=== PATIENT | female | born 1970 | race Caucasian/White ===

== ENCOUNTER → 2020-12-04 | Outpatient (CLI) | payer BC, SELFPAY ==
[2020-12-04 22:27] LABS: Absolute Neutrophil Count 3.4 X10^3/uL (2.0-7.7); Basophil# 0.03 X10^3/uL; Basophil% 0.4 % (0-1); Eosinophil# 0.08 X10^3/uL; Eosinophils% 1.2 % (0-5); Hematocrit 35.4 % (37-47); Hemoglobin 10.6 g/dL (12.0-15.0); Lymphocyte % 37.4 % (19-41); Mean Corp Hgb Conc 29.9 g/dL (32-36); Mean Corpuscular Hgb 21.5 pg (27.0-32.0); Mean Platelet Vol. 9.1 fl (6.2-12.0); Monocyte# 0.65 X10^3/uL; Monocyte% 9.7 % (0-10); NRBC Flagged by Analyzer 0 % (0-5); Neutrophil # 3.41 X10^3/uL (2.7-7.7); Platelet Count 340 K/mm3 (150-450); RBC Distribution Width CV 17.1 % (11.6-14.6); RBC Distribution Width SD 43.7 fl (35.1-43.9); Red Blood Count 4.92 M/mm3 (4.2-5.4); White Blood Count 6.7 K/mm3 (4.4-11.0)
[2020-12-04 22:49] LABS: AST(SGOT) 18 U/L (15-37); Alanine Aminotransfer ALT/SGPT 27 U/L (13-56); Albumin, Serum 3.6 g/dL (3.2-5.0); Alkaline Phosphatase 97 U/L (45-117); Anion Gap 8 (5-15); BUN 13 mg/dL (7-18); BUN/Creat Ratio 14.3 RATIO (10-20); Calcium,Total 8.4 mg/dL (8.5-10.1); Chloride 106 mmol/L (98-107); Creatinine, Serum 0.91 mg/dL (0.55-1.02); EST Glomerular Filtration Rate 69 mL/min (>60); Est Glom Filt Rate - Afr Amer 84 mL/min (>60); Globulin 3.6 g/dL (2.2-4.2); Glucose 119 mg/dL (74-106); Magnesium 2.2 mg/dL (1.6-2.6); Potassium 3.9 mmol/L (3.5-5.1); Protein, Total 7.2 g/dL (6.4-8.2); Sodium Level 141 mmol/L (136-145); Thyroid Stim Hormone (TSH) 2.09 uIU/mL (0.358-3.74)
[2020-12-09 17:14] LABS: Vitamin D 1,25-Dihydroxy 67.3 pg/mL (19.9-79.3)
== END | disposition home or self-care (01) ==
PROVIDERS: Visit Provider Nurse Practitioner
DX: R25.2 Cramp and spasm (principal); E55.9 Vitamin D deficiency, unspecified; R53.83 Other fatigue
CPT/HCPCS: 80053; 82652; 83735; 84443; 85025

== ENCOUNTER → 2021-01-21 | Outpatient (CLI) | payer BC, SELFPAY ==
[2021-01-21 22:10] LABS: Absolute Neutrophil Count 4.8 X10^3/uL (2.0-7.7); Basophil# 0.05 X10^3/uL; Basophil% 0.6 % (0-1); Eosinophil# 0.12 X10^3/uL; Eosinophils% 1.5 % (0-5); Hematocrit 34.3 % (37-47); Lymphocyte % 30.4 % (19-41); Mean Corp Hgb Conc 29.2 g/dL (32-36); Mean Corpuscular Hgb 21.4 pg (27.0-32.0); Mean Corpuscular Volume 73.3 fL (81-99); Mean Platelet Vol. 9.3 fl (6.2-12.0); Monocyte# 0.77 X10^3/uL; Monocyte% 9.4 % (0-10); NRBC Flagged by Analyzer 0 % (0-5); Neutrophil # 4.75 X10^3/uL (2.7-7.7); Neutrophil % 57.6 % (47-70); Platelet Count 322 K/mm3 (150-450); RBC Distribution Width CV 17.7 % (11.6-14.6); Red Blood Count 4.68 M/mm3 (4.2-5.4); White Blood Count 8.2 K/mm3 (4.4-11.0)
[2021-01-21 22:19] LABS: Iron Binding Capacity,Total 412 ug/dL (250-450)
[2021-01-23 13:50] LABS: Transferrin 337 mg/dL (192-364)
== END | disposition home or self-care (01) ==
PROVIDERS: Referring Provider Nurse Practitioner; Visit Provider Nurse Practitioner
DX: D50.9 Iron deficiency anemia, unspecified (principal)
CPT/HCPCS: 83550; 84466; 85025

== ENCOUNTER → 2021-02-12 | Outpatient (CLI) | payer BC, SELFPAY ==
[2021-02-12 22:22] LABS: Vitamin B12 590 pg/mL (211-911)
[2021-02-12 22:58] LABS: Ferritin 4 ng/mL (8-252); Iron 21 ug/dL (50-170); Iron Binding Capacity,Total 417 ug/dL (250-450)
== END | disposition home or self-care (01) ==
PROVIDERS: Visit Provider Nurse Practitioner
DX: D50.9 Iron deficiency anemia, unspecified (principal)
CPT/HCPCS: 82607; 82728; 82746; 83540; 83550

== ENCOUNTER 2021-06-19 21:11 | Outpatient (CLI) | payer BC, SELFPAY ==
[2021-06-19 21:19] LABS: Absolute Lymphocyte Count 1.83 X10^3/uL (0.83-4.51); Absolute Neutrophil Count 2.3 X10^3/uL (2.0-7.7); Basophil# 0.04 X10^3/uL; Basophil% 0.8 % (0-1); Eosinophil# 0.08 X10^3/uL; Eosinophils% 1.7 % (0-5); Hematocrit 33.5 % (37-47); Hemoglobin 10.4 g/dL (12.0-15.0); Lymphocyte # 1.83 X10^3/ul (0.83-4.51); Mean Corpuscular Hgb 22.3 pg (27.0-32.0); Mean Corpuscular Volume 71.7 fL (81-99); Mean Platelet Vol. 9.3 fl (6.2-12.0); Monocyte% 12.4 % (0-10); NRBC Flagged by Analyzer 0 % (0-5); Neutrophil # 2.26 X10^3/uL (2.7-7.7); Neutrophil % 46.9 % (47-70); Platelet Count 256 K/mm3 (150-450); RBC Distribution Width CV 18.6 % (11.6-14.6); Red Blood Count 4.67 M/mm3 (4.2-5.4); White Blood Count 4.8 K/mm3 (4.4-11.0)
[2021-06-19 21:47] LABS: AST(SGOT) 64 U/L (15-37); Alanine Aminotransfer ALT/SGPT 58 U/L (13-56); Albumin, Serum 3.2 g/dL (3.2-5.0); Alkaline Phosphatase 100 U/L (45-117); Anion Gap 4 (5-15); BUN 12 mg/dL (7-18); BUN/Creat Ratio 11.1 RATIO (10-20); Calcium,Total 8.5 mg/dL (8.5-10.1); Chloride 111 mmol/L (98-107); Creatinine, Serum 1.08 mg/dL (0.55-1.02); EST Glomerular Filtration Rate 56 mL/min (>60); Est Glom Filt Rate - Afr Amer 68 mL/min (>60); Ferritin 7 ng/mL (8-252); Globulin 3.3 g/dL (2.2-4.2); Glucose 87 mg/dL (74-106); Iron Binding Capacity,Total 399 ug/dL (250-450); Potassium 3.5 mmol/L (3.5-5.1); Protein, Total 6.5 g/dL (6.4-8.2); Sodium Level 142 mmol/L (136-145)
[2021-06-23 12:17] LABS: Transferrin 311 mg/dL (192-364)
== END 2021-06-19 23:59 | disposition home or self-care (01) ==
PROVIDERS: Referring Provider Nurse Practitioner; Visit Provider Nurse Practitioner
DX: D50.9 Iron deficiency anemia, unspecified (principal)
CPT/HCPCS: 80053; 82728; 83550; 84466; 85025

== ENCOUNTER → 2021-12-17 | Outpatient (CLI) | payer BC, SELFPAY ==
[2021-12-17 21:58] LABS: Absolute Lymphocyte Count 2.91 X10^3/uL (0.83-4.51); Absolute Neutrophil Count 2.7 X10^3/uL (2.0-7.7); Basophil# 0.04 X10^3/uL; Basophil% 0.6 % (0-1); Eosinophil# 0.11 X10^3/uL; Eosinophils% 1.8 % (0-5); Hematocrit 38.7 % (37-47); Hemoglobin 12.7 g/dL (12.0-15.0); Lymphocyte # 2.91 X10^3/ul (0.83-4.51); Lymphocyte % 46.4 % (19-41); Mean Corp Hgb Conc 32.8 g/dL (32-36); Mean Corpuscular Hgb 27.4 pg (27.0-32.0); Mean Corpuscular Volume 83.4 fL (81-99); NRBC Flagged by Analyzer 0 % (0-5); Platelet Count 225 K/mm3 (150-450); RBC Distribution Width CV 14.4 % (11.6-14.6); RBC Distribution Width SD 43.8 fl (35.1-43.9); Red Blood Count 4.64 M/mm3 (4.2-5.4); White Blood Count 6.3 K/mm3 (4.4-11.0)
[2021-12-17 22:31] LABS: ALB/GLOB Ratio 1.2 RATIO (0.9-2.4); AST(SGOT) 19 U/L (15-37); Alanine Aminotransfer ALT/SGPT 20 U/L (13-56); Albumin, Serum 3.7 g/dL (3.2-5.0); Alkaline Phosphatase 74 U/L (45-117); Anion Gap 5 (5-15); BUN 12 mg/dL (7-18); BUN/Creat Ratio 14.8 RATIO (10-20); Calcium,Total 8.6 mg/dL (8.5-10.1); Chloride 108 mmol/L (98-107); Creatinine, Serum 0.81 mg/dL (0.55-1.02); EST Glomerular Filtration Rate 78 mL/min (>60); Est Glom Filt Rate - Afr Amer 95 mL/min (>60); Globulin 3.2 g/dL (2.2-4.2); Glucose 101 mg/dL (74-106); Potassium 3.8 mmol/L (3.5-5.1); Protein, Total 6.9 g/dL (6.4-8.2); Sodium Level 138 mmol/L (136-145)
[2021-12-21 14:23] LABS: Transferrin 183 mg/dL (192-364)
== END | disposition home or self-care (01) ==
PROVIDERS: Visit Provider Nurse Practitioner
DX: D50.0 Iron deficiency anemia secondary to blood loss (chronic) (principal)
CPT/HCPCS: 80053; 84466; 85025

== ENCOUNTER → 2023-11-22 | Outpatient (CLI) | payer BC, SELFPAY ==
[2023-11-22 22:17] LABS: Absolute Lymphocyte Count 2.56 X10^3/uL (0.83-4.51); Absolute Neutrophil Count 2.3 X10^3/uL (2.0-7.7); Basophil# 0.03 X10^3/uL; Basophil% 0.5 % (0-1); Eosinophil# 0.18 X10^3/uL; Eosinophils% 3.3 % (0-5); Hematocrit 34.5 % (37-47); Hemoglobin 11.4 g/dL (12.0-15.0); Lymphocyte # 2.56 X10^3/ul (0.83-4.51); Lymphocyte % 46.9 % (19-41); Mean Corpuscular Hgb 27.3 pg (27.0-32.0); Mean Corpuscular Volume 82.5 fL (81-99); Mean Platelet Vol. 9.2 fl (6.2-12.0); Monocyte# 0.42 X10^3/uL; Monocyte% 7.7 % (0-10); NRBC Flagged by Analyzer 0 % (0-5); Neutrophil # 2.26 X10^3/uL (2.7-7.7); Neutrophil % 41.4 % (47-70); Platelet Count 230 K/mm3 (150-450); RBC Distribution Width SD 42.3 fl (35.1-43.9); Red Blood Count 4.18 M/mm3 (4.2-5.4); White Blood Count 5.5 K/mm3 (4.4-11.0)
[2023-11-22 22:42] LABS: Magnesium 2.3 mg/dL (1.6-2.6); Thyroid Stim Hormone (TSH) 4.01 uIU/mL (0.358-3.74)
[2023-11-23 08:46] LABS: Vitamin B12 626 pg/mL (211-911)
[2023-11-25 13:08] LABS: Vitamin D 1,25-Dihydroxy 60.3 pg/mL (24.8-81.5)
== END | disposition home or self-care (01) ==
PROVIDERS: Referring Provider Nurse Practitioner; Visit Provider Nurse Practitioner
DX: R25.2 Cramp and spasm (principal); I83.90 Asymptomatic varicose veins of unspecified lower extremity; E55.9 Vitamin D deficiency, unspecified; D50.9 Iron deficiency anemia, unspecified; E03.9 Hypothyroidism, unspecified
CPT/HCPCS: 82607; 82652; 83735; 84443; 85025

== ENCOUNTER → 2023-11-30 | Outpatient (CLI) | payer BC, SELFPAY ==
--- NOTE | 2023-11-30 13:57 | ART_ITS ---
Reason For Study: Claudication Procedure A bilateral lower extremity continuous wave Doppler with analog waveform analysis,segmental pressures,and ankle brachial indexes without exercise. Left Segmental Pressures Left brachial= 106mmHg. Left posterior tibial artery = 140mmHg. Left dorsalis pedis artery = 129mmHg. The left dorsalis pedis waveforms are triphasic. The left posterior tibial artery waveforms are triphasic. Right Segmental Pressures Right brachial= 110mmHg. Right posterior tibial artery = 144mmHg. Right dorsalis pedis artery = 131mmHg. The right dorsalis pedis waveforms are triphasic. The right posterior tibial artery waveforms are triphasic. Indices The right ankle brachial index by the dorsalis pedis is 1.19. The right ankle brachial index by the posterior tibial artery is 1.31. The left ankle brachial index by the dorsalis pedis is 1.17. The left ankle brachial index by the posterior tibial artery is 1.27. VL/Lower Ext Art Exam w/o Exercis Interpretation Summary Triphasic Doppler waveforms are noted at ankle level bilaterally. Pulse-volume recordings appear diminished at digital level on the right, but satisfactory at all other levels bilaterally. Resting ankle-brachial indices are normal bilaterally. Arterial flow appears normal at ankle level bilaterally. Arterial flow appears normal at digital level on the left. Arterial flow may be diminished at digital level on the righ t, but was not fully evaluated. Ordering Physician: Isaac Mina Referring Physician: ISAAC MINA INPATIENT CODER-C Performed By: Gena Sanchez RVT
--- NOTE | 2023-11-30 13:57 | VDLE_ITS ---
Reason For Study: Bilateral leg swelling RIGHT LEFT CFV is compressible, spontaneous, phasic, CFV is compressible, spontaneous, phasic, competent and demonstrates normal competent, and demonstrates normal augmentation. augmentation. FV is compressible, spontaneous, phasic, FV is compressible, spontaneous, phasic, competent and demonstrates normal competent and demonstrates normal augmentation. augmentation. POP V is compressible, spontaneous, phasic, POP V is compressible, spontaneous, phasic, competent and demonstrates normal competent and demonstrates normal augmentation. augmentation. T/P Trunk is compressible. T/P Trunk is compressible. PTV is compressible. PTV is compressible. RT PerV is compressible. LT PerV is compressible. SFJ is INCOMPETENT and measures 0.64 cm. SFJ is INCOMPETENT and measures 0.77 cm. GSV proximal thigh measures 0.33 x 0.32 cm. GSV proximal thigh measures 0.38 x 0.41 cm. GSV at knee measures 0.29 x 0.31 cm. GSV at knee measures 0.22 x 0.24 cm. GSV is competent throughout. GSV is competent throughout. SSV proximal calf is competent and measures SSV proximal calf is competent and measures 0.13 x 0.14 cm. 0.26 x 0.25 cm. Procedure This is a venous duplex using B-mode, color flow and spectral Doppler. Exam performed in department. Patient was scanned in reverse Trendelenburg position during reflux assessment. VL/Venous Duplex US - Rui Extrem Interpretation Summary Deep veins of the lower extremities are bilaterally patent and compressible seg mentally. There is no evidence of deep vein thrombosis on either side. Valvular competence appears in tact within the proximal deep venous systems bilaterally. The great saphenous veins appear bila terally patent and compressible segmentally. Sapheno-femoral junctions are bilaterally incompetent . Valvular competence appears to be intact segmentally within the great saphenous veins bi laterally. Small saphenous veins are patent and competent bilaterally. Ordering Physician: Deann Olson Referring Physician: Deann Olson Performed By: Gena Sanchez RVT
== END | disposition home or self-care (01) ==
LOC: CVS 13:53
PROVIDERS: PCP Nurse Practitioner; Referring Provider Nurse Practitioner; Visit Provider Nurse Practitioner
DX: R60.9 Edema, unspecified (principal); I83.813 Varicose veins of bilateral lower extremities with pain; R25.2 Cramp and spasm; I73.9 Peripheral vascular disease, unspecified
CPT/HCPCS: 93923; 93970

== ENCOUNTER → 2024-02-11 | Outpatient (CLI) | payer BC, SELFPAY ==
--- NOTE | 2024-02-11 15:30 | RAD_ITS ---
STUDY: X-RAY - LUMBAR SPINE REASON FOR EXAM: Female, 53 years old. lower extremity tingling/cramps/pain TECHNIQUE: XR Spine Lumbar 2 or 3 Views COMPARISON: None FINDINGS: Normal lumbar lordosis. There is no substantial scoliosis. There is a normal alignment of the vertebrae. There is multilevel endplate spondylosis of the lumbar vertebrae. There is multi-level degenerative disc disease with multi-level disc space narrowing. There are atherosclerotic vascular calcifications. The left hip arthroplasty. Degenerative findings of the right hip. The soft tissue structures are unremarkable. RAD/Lumbar Spine 2 or 3 Views IMPRESSION: Degenerative changes of the spine, as detailed above. Electronically Signed: Mikel Yanez MD at 19:46 EDT ,
[2024-02-11 16:05] LABS: Absolute Lymphocyte Count 2.24 X10^3/uL (0.83-4.51); Absolute Neutrophil Count 2.1 X10^3/uL (2.0-7.7); Basophil# 0.04 X10^3/uL; Basophil% 0.8 % (0-1); Eosinophil# 0.17 X10^3/uL; Eosinophils% 3.4 % (0-5); Hematocrit 34.8 % (37-47); Hemoglobin 11.1 g/dL (12.0-15.0); Lymphocyte # 2.24 X10^3/ul (0.83-4.51); Lymphocyte % 45.1 % (19-41); Mean Corp Hgb Conc 31.9 g/dL (32-36); Mean Corpuscular Hgb 26.7 pg (27.0-32.0); Mean Corpuscular Volume 83.9 fL (81-99); Mean Platelet Vol. 8.8 fl (6.2-12.0); Monocyte# 0.43 X10^3/uL; Monocyte% 8.7 % (0-10); NRBC Flagged by Analyzer 0 % (0-5); Neutrophil # 2.08 X10^3/uL (2.7-7.7); Neutrophil % 41.8 % (47-70); Platelet Count 191 K/mm3 (150-450); RBC Distribution Width CV 14.2 % (11.6-14.6); RBC Distribution Width SD 43.5 fl (35.1-43.9); Red Blood Count 4.15 M/mm3 (4.2-5.4)
[2024-02-11 16:47] LABS: Vitamin B12 541 pg/mL (211-911)
--- OUTSIDE RECORDS SUMMARY | 2024-02-11 17:15 | XMS RPT_ITS | CCD ---
Author Organization [facility] Care Team Providers Care Interior Painter Name Role Phone Wendy Anderson Primary Care Provider Unavailab ISAAC Paz Primary Care Unavailable ASTER COURTNEY Attending Unavailable ASTER COURTNEY Admitting Unavailable Isaac Mina Primary Care Provider ISAAC MINA Referring Unavailable ISAAC MINA Primary Care Unavailable ANDRÉS ROJAS Attending Unavailable Wesley ART DISPLAY MAKER.Isaac LOPEZ Primary Care Provide r SELF Referring Unavailable ISAAC MINA Primary Care Unavailable Allergies Allergy Classification Reported Allergen(s) Allergy Type Date of Onset Reaction(s) Facility Opioid Agonists (1 source) Codeine Drug Allergy 02-26-2015 Other (See Comments) [facility] (2 sources) Codeine Drug Allergy 02-26-2015 Other (See Comments), Unknown, Intolerance, Other: See Comments [facility] Work Phone: Medications Current Medications Medication Drug Class(es) Dates Sig (Normalized) Sig (Original) acetaminophen 500 mg oral tablet (6 sources) Start: 07-21-2020 take 1 dose by mouth three times daily 1,000 mg, Oral, EVERY 8 HOURS SCHEDULED (3 times per day), First dose on 07/21/20 at 1400 Maximum dose of acetaminophen is 4000 mg from all sources in 24 hours. Post-op acetaminophen (T YLENOL EXTRA STRENGTH ORAL) Take 500 mg by mouth as needed (PRN). 0 Active acetaminophen 325 mg / oxyCODONE hydrochloride 5 mg oral tablet (1 source) Opioid Agonist Start: 07-21-2020 End: 07-26-2020 take 1 tablet by mouth every six hours as needed for pain, then take 1 tablet by mouth as needed for pain oxyCODONE-acetaminophen (PERCOCET) 5-325 MG per tablet Indications: Internal hernia Take 1 tablet by mouth every 6 hours as needed for Pain for up to 5 days. Intended supply: 5 days. Take lowest dose possible to manage pain 20 tablet 0 07/21/2020 07/26/2020 Active albuterol 0.83 mg/ml inhalant solution (1 source) beta2-Adrene rgic Agonist Start: 07-21-2020 2.5 mg, Nebulization, EVERY 4 HOURS WHILE AWAKE, First dose on 07/21/20 at 1600, Post-op ascorbic acid 500 mg chewable tablet (1 source) Vitamin C take 500 mg by mouth once daily Ascorbic Acid (VITAMIN C) 500 MG CHEW Take by mouth daily Supplement 0 Active bifidobacterium animalis [id number] unt / lactobacillus acidophilus [id number] unt oral capsule (3 sources) take 1 capsule by mouth once daily Probiotic Product (Probiotic Daily) capsule Take 1 capsule by mouth daily. 0 Active cholecalciferol 0.025 mg oral tablet (3 sources) Vitamin D take 1 tablet by mouth in the morning cholecalciferol (Vitamin D3) 25 MCG (1000 UT) tablet Take 1,000 Units by mouth in the morning. 0 Active take 2 tablets by mouth once naheed ly Vitamin D (CHOLECALCIFEROL) 25 MCG (1000 UT) TABS tablet Take 1,000 Units by mouth daily 2 tablets a day Supplement 0 Active cyclobenzaprine hydrochloride 10 mg oral tablet (1 source) Muscle Relaxant Start: 11-20-2023 take 0.5-1 tablets by mouth at bedtime as needed cyclobenzaprine (FLEXERIL) 10 mg tablet Indications: Muscle cramps Take 0.5-1 tablets by mouth at bedtime as needed. 14 tablet 0 11/20/2023 Active Digestive Enzymes (whoactually PREBIOTIC SUPPLEMENT PO) (2 sources) Digestive Enzyme s (whoactually PREBIOTIC SUPPLEMENT PO) Take by mouth daily. 0 Active 0.4 ml enoxaparin sodium 100 mg/ml prefilled syringe (1 source) Low Molecular Weight Heparin Start: 07-21-2020 inject 40 mg by subcutaneous injection every twelve hours 40 mg, Subcutaneous, DAILY, First dose on 07/21/20 at 2200 40mg every 12 hours, subcutaneous, if 300 - 400 lbs. Post-op ergocalciferol, vitamin D2, (VITAMIN D2 ORAL) (1 source) ergocalciferol, vitamin D2, (VITAMIN D2 ORAL) Take by mouth. 0 Active HYDROmorphone (DILAUDID) injection 0.25 mg (1 source) Start: 07-21-2020 HYDROmorphone (DILAUDID) injection 0.25 mg iron,carb/vit C/vit B12/folic (IRON 100 PLUS ORAL) (1 source) iron,carb/vit C/ vit B12/folic (IRON 100 PLUS ORAL) Take by mouth. 0 Active Lutein (2 sources) take 1 tablet by mouth in the morning LUTEIN PO Take 1 tablet by mouth in the morning. 0 Active Magnesium (3 sources) Magnesium 200 mg tab Take by mouth. 0 Active MAGNESIUM PO Jose e by mouth daily. 0 Active meclizine hydrochloride 12.5 mg oral tablet (2 sources) Antiemetic Start: 06-04-2022 take 1 tablet by mouth three times daily as needed meclizine (Antivert) 12.5 MG tablet Take 12.5 mg by mouth 3 times daily as needed. 0 06/04/2022 Active Multivitamins-Minerals -Lutein (MULTIVITAMIN 50 PLUS) tab (1 source) Multivitamins-Mi nera ls-Lutein (MULTIVITAMIN 50 PLUS) tab Take 1 tablet by mouth once daily. Plexus vitamins 0 Active NONFORMULARY (6 sources) NONFORMULARY 1 tablet daily PLEXUS [employer] contains Magnesium 0 Active NONFORMULARY PLE XUS Multi vitamin X Factor 0 Active NONFORMULARY PLE XUS OMEGA 3-5-6-7 0 Active NONFORMULARY PLE XUS Balance 0 Active NONFORMULARY PLE XUS Immune PLUS 0 Active NONFORMULARY Sli m liquid gut health 0 Active omega-3 acid ethyl esters (penitentiary) 1000 mg oral capsule (2 sources) omega-3 acid eth yl esters (Lovaza) 1 g capsule Take 1 g by mouth 2 times daily. 0 Active ondansetron 8 mg oral tablet (7 sources) Serotonin-3 Receptor Antagonist Start: 3 take 1 tablet by mouth every twelve hours as needed ondansetron (Zofran) 8 MG tablet Take 8 mg by mouth every 12 hours as needed. 0 06/04/2022 Active Start: 07-21-2020 take 1 tablet by kait th three times daily as needed for nausea ondansetron (ZOFRAN) 4 MG tablet Take 1 tablet by mouth 3 times daily as needed for Nausea or Vomiting 15 tablet 0 07/21/2020 Active Start: 07-21-2020 End: 07-21-2020 4 mg, Intravenous, EVERY 6 H OURS PRN, Nausea, Starting 07/21/20 at 1236, Post-op Start: 07-21-2020 End: 07-21-2020 ondansetron (ZOFRAN-ODT) disintegrating tablet 4 mg oxyCODONE (1 source) Opioid Agonist Start: 07-21-2020 oxyCODONE (ROXICODONE) immediate release tablet 5 mg pantoprazole 40 mg delayed release oral tablet (1 source) Proton Pump Inhibitor Start: 07-21-2020 take 40 mg by mouth once daily 40 mg, Oral, DAILY, First dose on 07/21/20 at 1300 Do not crush or break. Post-op 3 ml sodium chloride 9 mg/ml injection (2 sources) Start: 07-21-2020 10 mL, Intrave nous, EVERY 12 HOURS SCHEDULED (2 times per day), First dose on 07/21/20 at 2100, Post-op Start: 07-21-2020 take 10 mL intravenous route o nce 10 mL, Intravenous, PRN, Line Care, Starting 07/21/20 at 1236 After every IV line use Post-op Zinc (1 source) take 1 tablet by kait th once daily zinc 50 MG TABS tablet Take 50 mg by mouth daily zupplement 0 Active zinc gluconate 50 mg oral tablet (2 sources) take 1 tablet by kait th once daily zinc 50 MG tablet Take 50 mg by mouth daily. 0 Active Completed/Discontinued Medications Medication Drug Class(es) Dates Sig (Normalized) Sig (Original) calcium chloride 0.0014 meq/ml / potassium chloride 0.004 meq/ml / sodium chloride 0.103 meq/ml / sodium lactate 0.028 meq/ml injectable solution (1 source) Start: 07-21-2020 End: 07-21-2020 lactated ringers infusion 500 ml glucose 50 mg/ml / potassium chloride 0.02 meq/ml / sodium chloride 4.5 mg/ml injection (1 source) Start: 07-21-2020 End: 07-22-2020 Intravenous, at 100 mL/hr, CONTINUOUS, Starting 07/21/20 at 1300, Post-op 1 ml HYDROmorphone hydrochloride 1 mg/ml cartridge (2 sources) Opioid Agonist Start: 07-21-2020 End: 07-21-2020 HYDROmorphone (DILAUDID) injection 0.25 mg Start: 07-21-2020 End: 07-21-2020 HYDROmorphone (DILAUDID) inj ection 1 mg Probiotic Product (PROBIOTIC DAILY) CAPS (1 source) take 1 capsule by mouth once daily Probiotic Product (PROBIOTIC DAILY) CAPS Take 1 capsule by mouth daily 0 Suspended 1 ml promethazine hydrochloride 25 mg/ml injection (1 source) Phenothiazine Start: 07-21-2020 End: 07-21-2020 promethazine (PHENERGAN) injection 6.25 mg Problems Active Problems Problem Classification Problem Date Documented Da te Episodic/Chronic Abdominal pain (2 sources) Generalized abdominal pain; Translations: [Epigastric pain] Onset: 3 Episodic Complications of surgical procedures or medical care (14 sources) Post-surgical malabsorption; Translations: [Postsurgical malabsorption, not elsewhere classified] Onset: 5 02-26-2015 Chronic Deficiency and other anemia (4 sources) Iron deficiency anemia due to blood loss; Translations: [Iron deficiency anemia secondary to blood loss (chronic)] Onset: 2 02-02-2022 Chronic Disorders of lipid metabolism (10 sources) Hyperlipidemia; Translations: [Hyperlipidemia, unspecified] Onset: 5 02-26-2015 Chronic Esophageal disorders (10 sources) Gastroesophageal reflux disease; Translations: [Gastro-esophageal reflux disease without esophagitis] Onset: 5 02-26-2015 Chronic Nausea and vomiting (1 source) Nausea with vomiting, unspecified; Translations: [Nausea and vomiting, unspecified vomiting type] Onset: 3 Episodic Nutritional deficiencies (9 sources) Deficiency of multiple nutrient elements; Translations: [Deficiency of multiple nutrient elements] Onset: 1 08-01-2020 Episodic Other connective tissue disease (1 source) Cramp; Translations: [Cramp and spasm] 11-20-2023 Episodic Other gastrointestinal disorders (4 sources) Malabsorption - iron; Translations: [Intestinal malabsorption, unspecified] Onset: 2 02-02-2022 Chronic Other gastrointestinal disorders (1 source) Bariatric surgery status; Translations: [H/O gastric bypass] Onset: 3 Episodic Other nutritional; endocrine; and metabolic disorders (2 sources) Obesity caused by energy imbalance; Translations: [Other obesity due to excess calories] 03-29-2023 Chronic Other nutritional; endocrine; and metabolic disorders (2 sources) Other obesity due to excess calories; Translations: [Other obesity due to excess calories] Onset: 3 Chronic Other nutritional; endocrine; and metabolic disorders (2 sources) Body mass index (BMI) 33.0-33.9, adult; Translations: [Body mass index (BMI) 33.0-33.9, adult] Onset: 3 Chronic Residual codes; unclassified (2 sources) Acquired absence of stomach [part of]; Translations: [Acquired absence of stomach (part of)] Onset: 2 Episodic Past or Other Problems Problem Classification Problem Date Documented Da te Episodic/Chronic Abdominal hernia (8 sources) Intra-abdominal hernia; Translations: [Mesenteric hernia] Onset: 07-21-2020 07-22-2020 Episodic Deficiency and other anemia (4 sources) Anemia; Translations: [Anemia, unspecified] Onset: 07-16-2021 02-02-2022 Episodic Intestinal obstruction without hernia (2 sources) Unspecified intestinal obstruction, unspecified as to partial versus complete obstruction; Translations: [Small bowel obstruction] Onset: 03-10-2023 Resolved: 03-11-2023 03-11-2023 Episodic Malaise and fatigue (6 sources) Fatigue; Translations: [Other fatigue] Onset: 02-26-2015 02-26-2015 Episodic Results Test Name Value Interpretation Reference Range Facility [facility] 11-20-2023 CNOV Office Visit (WALKWA ) АЛЕКСАНДР AMBRIZ ([id number]) 1970 F Date Time Provider Department 11/20/23 12:05 PM ANISHA LAMB During your visit today, we recorded the following information about you: Temperature Pulse Blood pressure Weight 97.5 degrees 71/minute 107/72 96.7 kg Anisha Lamb PA-C 11/20/2023 2:28 PM Signed 11/20/2023 Patient presents with: Pain: Ankle pain started this morning, having cramps in leg, feet and thighs,. When she wakes up in middle of night if she gets up and steps down it goes away. Has been vitamin deficient before. Is taking suplaments. SUBJECTIVE: This is a 53 year old that is here today for recurring nightly leg cramps for months, maybe years and a long time. She complains of cramping in the bilateral lower legs that wakes her up at night for years. Cramping has been more frequent, basically every night for many months. She had cramping in the bilateral lower legs today that made her cry and didn't want to go away. They resolved with walking eventually today. She came here because I'm just tired of them. I don't know what to do. She has a PCP. She states labs and electrolytes were normal at my last visit. At night sometimes she can walk them out. Other times they don't seem to resolve and she has to take motrin and heating pads for them to eventually go away. She takes a daily vitamin. She stays hydrated. 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 She denies any leg swelling at all. No feet, ankle, hudson, or other leg swelling. No numbness, tingling, weakness, or loss of motor function. But, she states she has has some crawling or funny sensations in the lower legs. She has fallen twice in the past few weeks but denies legs giving out or weakness or loss of function. No other limp or body neurologic changes. Denies fever, chills, sweats, or fatigue. Patient denies wheezing, shortness of breath, increased WOB, or chest pain. No other URI symptoms. No other sick symptoms. Pain on scale of 0-10 with 0 being no pain and 10 being greatest pain: no pain currently Nothing makes the symptoms better. Nothing makes them worse. Self-treatment:. See HPI Barriers to learning: none. Reviewed meds, OTCs, herbals or supplements. Reviewed allergies, medications, social history, and past medical history. No past medical history on file. ALLERGIES Codeine MEDICATIONS Current Outpatient Medications Medication Sig ergocalciferol, vitamin D2, (VITAMIN D2 ORAL) Take by mouth. iron,carb/vit C/vit B12/folic (IRON 100 PLUS ORAL) Take by mouth. Magnesium 200 mg tab Take by mouth. Multivitamins-Minerals -Lutein (MULTIVITAMIN 50 PLUS) tab Take 1 tablet by mouth once daily. Plexus vitamins acetaminophen (TYLENOL EXTRA STRENGTH ORAL) Take 500 mg by mouth as needed (PRN). cyclobenzaprine (FLEXERIL) 10 mg tablet Take 0.5-1 tablets by mouth at bedtime as needed. No current facility-administered medications for this visit. Medications and allergies reviewed by this provider. SOCIAL HISTORY Social History Tobacco Use Smoking status: Never Smokeless tobacco: Never Vaping Use Vaping Use: Never used Substance Use Topics Alcohol use: Yes Comment: 4 times a month Drug use: Never REVIEW OF SYSTEMS Review of Systems ROS: constitutional-neg, heent-neg, heart-neg, respiratory-neg, GI-neg, -neg, skin-neg, MS- bilateral leg cramps at night for months, endo-neg, heme-neg, lymph-neg, neuro-neg, psych-neg- All systems neg except as noted above in HPI. OBJECTIVE: BP 107/72 Pulse 71 Temp 36.4 ?C (97.5 ?F) Wt 96.7 kg (213 lb 3 oz) SpO2 97% BMI 33.39 kg/m? . Vital signs reviewed by this provider. Physical Exam Vitals reviewed. Constitutional: General: She is not in acute distress. Appearance: Normal appearance. She is well-developed and normal weight. She is not ill-appearing, toxic-appearing or diaphoretic. HENT: Head: Normocephalic and atraumatic. Cardiovascular: Pulses: Dorsalis pedis pulses are 2+ on the right side and 2+ on the left side. Musculoskeletal: Right knee: Normal. Left knee: Normal. Right lower leg: Normal. No swelling, deformity, lacerations, tenderness or bony tenderness. No edema. Left lower leg: Normal. No swelling, deformity, lacerations, tenderness or bony tenderness. No edema. Right ankle: Normal. Left ankle: Normal. Right foot: Normal. Left foot: Normal. Comments: No TTP of the bilateral lowers legs. No swelling or edema. Skin: General: Skin is warm. Capillary Refill: Capillary refill takes less than 2 seconds. Findings: No abrasion, abscess, acne, bruising, burn, ecchymosis, erythema, signs of injury, laceration, lesion, petechiae, rash or wound. Neurological: General: No focal deficit present. Mental Status: She is alert and oriented to person, place, an (more content not included)... Normal [facility] Office Visiton 03-29-2023 Follow-up visit [id number] SerenaАлександр Preethi 1970 F Date Provider Department Center 03/29/2023 [id number] PRATER BCC SURG None Family History Problem Relation Age of Onset Cancer Mother Comments: ovarian High Blood Pressure Mother Hyperlipidemia Mother Cancer Father 53.00 Comments: lung, of lung cancer Diabetes Father Family Status - Relation Status Age at Mother Alive Father Level of Service:54726 [place] OFFICE/OUTPATIENT ESTABLISHED MOD MDM 30-39 MIN Reason for Visit and Comments: Bariatrics Post Op Follow-up [884] - Vomiting & abd pain/ ER F/U Normal [facility] Progress Noteon 03-29-2023 Progress Note HPI, PHYSICAL EXAMINATION & PLAN Post-Op HPI: Patient here for Patient states she had a small bowel obstruction late February in [place], and was admitted. Patient states she was released on a liquid diet over the holidays. Patient states she has only had liquid diet with soups, cottage cheese and wheat toast with peanut butter, with no problems. LRYGB 07/02/2011 MP closure of Mcarthur's defect, reduction of internal hernia and Lysis of adhesions 07/21/20 TB Recent ER visit for abdominal pain Ct personally reviewed showed SBO No obvious location of transition point Patient back to normal - no pain, no post prandial issues. Review of Systems Constitutional: Negative for fatigue and fever. HENT: Negative for congestion. Respiratory: Negative for shortness of breath. Cardiovascular: Negative for chest pain and leg swelling. Gastrointestinal: Negative for abdominal distention, abdominal pain, constipation, diarrhea, nausea and vomiting. Skin: Negative for color change. Physical Examination: BP 103/71 Pulse 56 Temp 36.4 ?C (97.5 ?F) Resp 18 Ht 5' 6.5 (1.689 m) Wt 210 lb 6.4 oz (95.4 kg) BMI 33.45 kg/m? General: This patient is awake, alert, and oriented, and is in no apparent distress. Cardiac: Regular rate and rhythm without evidence of murmur. Respiratory: Clear to auscultation bilaterally. Abdomen: Obese, soft, non-tender, non-distended without masses/ No evidence of abdominal hernia / Incisions consistent with previous surgeries. Head and Neck: Obese, normocephalic and atraumatic/soft and supple, no lymphadenopathy or obvious bruits. Extremities: No cyanosis, clubbing or edema/ No calf tenderness/No restrictions of movement, is ambulatory without assistance. Neurological: Intact x 4 extremities, no focal deficits notes. Skin: No rashes or lesions noted. Rectal: Deferred Assessment: was in er for SBO - No pain today, BM every other day, passing gas daily. PLAN: No orders of the defined types were placed in this encounter. Medications ordered during this encounter: Outpatient Encounter Medications as of 03/29/2023 Medication Sig Dispense Refill acetaminophen (Tylenol) 500 MG tablet Take 500 mg by mouth every 6 hours as needed. cholecalciferol (Vitamin D3) 25 MCG (1000 UT) tablet Take 1,000 Units by mouth in the morning. Digestive Enzymes ([employer] PREBIOTIC SUPPLEMENT PO) Take by mouth daily. LUTEIN PO Take 1 tablet by mouth in the morning. MAGNESIUM PO Take by mouth daily. meclizine (Antivert) 12.5 MG tablet Take 12.5 mg by mouth 3 times daily as needed. omega-3 acid ethyl esters (Lovaza) 1 g capsule Take 1 g by mouth 2 times daily. ondansetron (Zofran) 8 MG tablet Take 8 mg by mouth every 12 hours as needed. Probiotic Product (Probiotic Daily) capsule Take 1 capsule by mouth daily. zinc 50 MG tablet Take 50 mg by mouth daily. No facility-administered encounter medications on file as of 03/29/2023. Visit Diagnoses: 1. Gastroesophageal reflux disease, unspecified whether esophagitis present 2. 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 Hyperlipidemia, unspecified hyperlipidemia type 5. Class 1 obesity due to excess calories with serious comorbidity and body mass index (BMI) of 33.0 to 33.9 in adult Current Medications: Patient's Medications New Prescriptions No medications on file Previous Medications ACETAMINOPHEN (TYLENOL) 500 MG TABLET Take 500 mg by mouth every 6 hours as needed. CHOLECALCIFEROL (VITAMIN D3) 25 MCG (1000 UT) TABLET Take 1,000 Units by mouth in the morning. DIGESTIVE ENZYMES ([employer] PREBIOTIC SUPPLEMENT PO) Take by mouth daily. LUTEIN PO Take 1 tablet by mouth in the morning. MAGNESIUM PO Take by mouth daily. MECLIZINE (ANTIVERT) 12.5 MG TABLET Take 12.5 mg by mouth 3 times daily as needed. OMEGA-3 ACID ETHYL ESTERS (LOVAZA) 1 G CAPSULE Take 1 g by mouth 2 times daily. ONDANSETRON (ZOFRAN) 8 MG TABLET Take 8 mg by mouth every 12 hours as needed. PROBIOTIC PRODUCT (PROBIOTIC DAILY) CAPSULE Take 1 capsule by mouth daily. ZINC 50 MG TABLET Take 50 mg by mouth daily. Modified Medications No medications on file Discontinued Medications No medications on file Hold of further workup for now If pain returns go to [facility] ED Normal [facility] Progress Note [facility]GICAL WEIGHT LOSS MANAGEMENT PROGRAM ROOMING NOTE - OTHER POST-OP Patient: Александр Ambriz Date of : 1970 Service Date: 03/29/2023 Reason patient is here today: Vomiting & abd pain/ ER F/U. This patient is accompanied by spouse for the evaluation today. Date of Weight Loss Surgery: 07/02/2011 Procedure Performed: Laparoscopic Loreta-en-Y Gastric Bypass Post-Surgical Weight Loss Date: 03/29/23 Height: 5' 6.5 (168.9 cm) ([facility] - ht recheck) Weight: 210 lb 6.4 oz (95.4 kg) ([facility]) BMI: 33.45 Weight Change: -46.2 lbs Total Weight Change: -147.6 lbs % EBWL: 66% Comments: vomiting & abdominal pain /ER F/U Weight change from last visit Weight Change Since Last Visit: 95.44 kg Pain: Patient rates pain on scale 0-10 as: 0 Falls Risk Assessment Patient does not take medications which affect BP or mental status Patient does not have newly prescribed or changed dosage of medications within past 30 days which affect BP or mental status Patient has not fallen in the past 2 months Patient does not demonstrate unsteady gait Patient uses the following ambulatory assistive devices: none Patient states the presence of the following traits which increases risk of fall: N/A Patient is low risk for falls. If high or moderate risk, patient instructed not to ambulate independently in the Center, and cord for call light placed within reach of patient. Patient is not on home O2 Completed by: Maya Marcelino MA [place] [id number] 03-17-2023 36 Patient has been add ed to the schedule, and notified. 03/29 10:30 with MP Normal [place] [id number] 03-16-2023 36 Noted, thank you. Do es not appear surgery was done at [facility]. With history of internal hernia, can we see CT results? Shannon, nelli to schedule OV? Normal [place] [id number] 03-15-2023 36 LRYGB 07/02/2011 MP closure of Mcarthur's defect, reduction of internal hernia and Lysis of adhesions 07/21/20 TB Last OV-08/02/20 with TB, next none Pt admitted on 03/10/23 with SBO Will route to [facility] SPECIALIST and RNCM as FYI Believe that pt will need to follow up with [facility] surgeon for initial post op follow up and then can follow up with this office but will route to [facility] for review and direction on scheduling. Normal [facility] 36 Post op patient of Wesley Rojas in 2011, had bariatric surgery-loreta. Patient states she has had hernia operations afterwards with Dr Contreras and Dr Dennison. Patient states she had a small bowel obstruction last week, and was admitted here at [facility]. Patient states she was released on a liquid diet over the holidays. Patient states she has only had liquid diet with soups, cottage cheese and wheat toast with peanut butter, with no problems. Patient is asking to follow-up with us. Looks like patient was last seen in July [address] Dennison. [facility] ALLIED HEALTHon 03-11-2023 ALLIED HEALTH HNO ID: [id number] Author: Jaylene Montenegro V RT(R) Service: Radiology Author Type: Technologist Type: Allied Health Filed: 03/11/2023 9:26 AM Note Text: Radiology Service Progress Note PATIENT NAME: Александр Ambriz DATE OF SERVICE: March 11, 2023 TIME: 9:26 AM PATIENT IDENTITY VERIFICATION COMPLETED USING TWO (2) IDENTIFIERS: Name and Date of confirmed by patient verbally and Name and Date of confirmed by identification band. FALL SCREENING: Has the patient had 2 falls in the last year or 1 fall with injury or currently using an Ambulatory Assistive Device (Walker, Cane, Wheelchair, Crutches, etc.)? Inpatient: Screened on floor PATIENT GENDER DATA: Female. status: : No status: NO. PATIENT RELEVANT IMPLANT DATA REVIEWED: Not Applicable RADIOLOGY DEPARTMENT: General X-ray: Exam(s) Completed: Abdomen X-Ray: Supine and Upright PERIPHERAL IV DATA: Not applicable SIGNED BY: RT Dony(R) March 11, 2023 9:26 AM [facility] CASE MANAGEMon 03-11-2023 CASE MANAGEM HNO ID: [id number] Author: Chhaya Ann RN Service: ? Author Type: Registered Nurse Type: Care Mgt Progress Note Filed: 03/11/2023 10:28 AM Note Text: CARE MANAGEMENT DISCHARGE NOTE SERVICE DATE: March 11, 2023 SERVICE TIME: 10:28 AM Admission Date: 03/10/2023 LOS: 1 day Discharge Arrangement Discharge Arrangement: Home with Self Care Caregiver Assessment Caregiver is ready, willing and able to meet the patient's needs as recommended by the inter-professional team: No Caregiver needed Transportation Arrangements Transportation Arrangements: Car Handoff Communication: Handoff to: Primary Care Physician Primary Care Physician Name/Phone: Dr. Isaac [phone] Additional Information: Discharge order written for today. No skilled home going needs identified at discharge. SIGNATURE: Chhaya Ann RN PATIENT NAME: Александр Ambriz DATE: March 11, 2023 TIME: 10:28 AM CONTACT #: [phone] [facility] CBC W Auto Differential pane l (Bld)on 03-11-2023 Basophils (Bld) [#/Vol] 10*3/uL Normal <0.11 [facility] Comment on above: Order Comment: Speci men Type: BLOOD SPECIMEN Ordering Facility: [facility] Address: [address] [place] [address] Performed By: #### 5 7021-8 #### [facility] CLIA [id number] [address] [place] [address] [place] Basophils/100 WBC (Bld) 0.2 % Normal [facility] Comment on above: Order Comment: Speci men Type: BLOOD SPECIMEN Ordering Facility: [facility] Address: [address] [place] [address] Performed By: #### 5 7021-8 #### [facility] CLIA [id number] [address] [place] [address] [place] Differential cell count method Nom (Bld) Auto Normal [facility] Comment on above: Order Comment: Speci men Type: BLOOD SPECIMEN Ordering Facility: [facility] Address: [address] [place] [address] Performed By: #### 5 7021-8 #### [facility] CLIA [id number] [address] [place] [address] [place] Eosinophils (Bld) [#/Vol] 0.14 10*3/uL Normal <0.46 [facility] Comment on above: Order Comment: Speci men Type: BLOOD SPECIMEN Ordering Facility: [facility] Address: [address] [place] [address] Performed By: #### 5 7021-8 #### [facility] CLIA [id number] [address] [place] Eosinophils/100 WBC (Bld) 3.0 % Normal [facility] Comment on above: Order Comment: Speci men Type: BLOOD SPECIMEN Ordering Facility: [facility] Address: [address] [place] [address] Performed By: #### 5 7021-8 #### [facility] CLIA [id number] [address] [place] [address] [place] Erythrocyte distribution width (RBC) [Ratio] 13.7 % Normal 11.5-15.0 [facility] Comment on above: Order Comment: Speci men Type: BLOOD SPECIMEN Ordering Facility: [facility] Address: [address] [place] [address] Performed By: #### 5 7021-8 #### [facility] CLIA [id number] [address] [place] [address] [place] Hematocrit (Bld) [Volume fraction] 32.6 % Low 36.0-46.0 [facility] Comment on above: Order Comment: Speci men Type: BLOOD SPECIMEN Ordering Facility: [facility] Address: [address] [place] [address] Performed By: #### 5 7021-8 #### [facility] CLIA [id number] [address] [place] [address] [place] Hemoglobin (Bld) [Mass/Vol] 10.9 g/dL Low 11.5-15.5 [facility] Comment on above: Order Comment: Speci men Type: BLOOD SPECIMEN Ordering Facility: [facility] Address: [address] [place] [address] Performed By: #### 5 7021-8 #### [facility] CLIA [id number] [address] [place] [address] [place] Immature granulocytes (Bld) [#/Vol] 10*3/uL Normal <0.10 [facility] Comment on above: Order Comment: Speci men Type: BLOOD SPECIMEN Ordering Facility: [facility] Address: [address] [place] [address] Performed By: #### 5 7021-8 #### [facility] CLIA [id number] [address] [place] Immature granulocytes/100 WBC (Bld) 0.2 % Normal [facility] Comment on above: Order Comment: Speci men Type: BLOOD SPECIMEN Ordering Facility: [facility] Address: [address] [place] [address] Performed By: #### 5 7021-8 #### [facility] CLIA [id number] [address] [place] [address] [facility] [place] Lymphocytes (Bld) [#/Vol] 1.88 10*3/uL Normal 1.00-4.00 [facility] Comment on above: Order Comment: Speci men Type: BLOOD SPECIMEN Ordering Facility: [facility] Address: [address] [place] [address] Performed By: #### 5 7021-8 #### [facility] CLIA [id number] [address] [place] Lymphocytes/100 WBC (Bld) 40.7 % Normal [facility] Comment on above: Order Comment: Speci men Type: BLOOD SPECIMEN Ordering Facility: [facility] Address: [address] [place] [address] Performed By: #### 5 7021-8 #### [facility] CLIA [id number] [address] MCH (RBC) [Entitic mass] 27.4 pg Normal 26.0-34.0 [facility] Comment on above: Order Comment: Speci men Type: BLOOD SPECIMEN Ordering Facility: [facility] Address: [address] [place] [address] Performed By: #### 5 7021-8 #### [facility] CLIA [id number] [address] [place] MCHC (RBC) [Mass/Vol] 33.4 g/dL Normal 30.5-36.0 [facility] Comment on above: Order Comment: Speci men Type: BLOOD SPECIMEN Ordering Facility: [facility] Address: [address] [place] [address] Performed By: #### 5 7021-8 #### [facility] CLIA [id number] [address] MCV (RBC) [Entitic vol] 81.9 fL Normal 80.0-100.0 [facility] Comment on above: Order Comment: Speci men Type: BLOOD SPECIMEN Ordering Facility: [facility] Address: [address] [place] [address] Performed By: #### 5 7021-8 #### [facility] CLIA [id number] [address] [place] Monocytes (Bld) [#/Vol] 0.42 10*3/uL Normal <0.87 [facility] Comment on above: Order Comment: Speci men Type: BLOOD SPECIMEN Ordering Facility: [facility] Address: [address] [place] [address] Performed By: #### 5 7021-8 #### [facility] CLIA [id number] [address] [place] [address] [place] Monocytes/100 WBC (Bld) 9.1 % Normal [facility] Comment on above: Order Comment: Speci men Type: BLOOD SPECIMEN Ordering Facility: [facility] Address: [address] [place] [address] Performed By: #### 5 7021-8 #### [facility] CLIA [id number] [address] [place] [address] [place] Neutrophils (Bld) [#/Vol] 2.16 10*3/uL Normal 1.45-7.50 [facility] Comment on above: Order Comment: Speci men Type: BLOOD SPECIMEN Ordering Facility: [facility] Address: [address] [place] [address] Performed By: #### 5 7021-8 #### [facility] CLIA [id number] [address] [place] Neutrophils/100 WBC (Bld) 46.8 % Normal [facility] Comment on above: Order Comment: Speci men Type: BLOOD SPECIMEN Ordering Facility: [facility] Address: [address] [place] [address] Performed By: #### 5 7021-8 #### [facility] CLIA [id number] [address] [place] [address] [place] Nucleated RBC (Bld) [#/Vol] 10*3/uL Normal <0.01 [facility] Comment on above: Order Comment: Speci men Type: BLOOD SPECIMEN Ordering Facility: [facility] Address: [address] [place] [address] Performed By: #### 5 7021-8 #### [facility] CLIA [id number] [address] [place] [address] [place] Nucleated RBC/100 WBC (Bld) [Ratio] 0.0 /100 WBC Normal [facility] Comment on above: Order Comment: Speci men Type: BLOOD SPECIMEN Ordering Facility: [facility] Address: [address] [place] [address] Performed By: #### 5 7021-8 #### [facility] CLIA [id number] [address] [place] [address] [place] Platelet mean volume (Bld) [Entitic vol] 8.3 fL Low 9.0-12.7 [facility] Comment on above: Order Comment: Speci men Type: BLOOD SPECIMEN Ordering Facility: [facility] Address: [address] [place] [address] Performed By: #### 5 7021-8 #### [facility] CLIA [id number] [address] [place] [address] [place] Platelets (Bld) [#/Vol] 160 10*3/uL Normal 150-400 [facility] Comment on above: Order Comment: Speci men Type: BLOOD SPECIMEN Ordering Facility: [facility] Address: [address] [place] [address] Performed By: #### 5 7021-8 #### [facility] CLIA [id number] [address] [place] [address] [place] RBC (Bld) [#/Vol] 3.98 10*6/uL Normal 3.90-5.20 [facility] Comment on above: Order Comment: Speci men Type: BLOOD SPECIMEN Ordering Facility: [facility] Address: [address] [place] [address] Performed By: #### 5 7021-8 #### [facility] CLIA [id number] [address] [place] [address] [place] WBC (Bld) [#/Vol] 4.62 10*3/uL Normal 3.70-11.00 [facility] Comment on above: Order Comment: Speci men Type: BLOOD SPECIMEN Ordering Facility: [facility] Address: [address] [place] [address] Performed By: #### 5 7021-8 #### [facility] CLIA [id number] [address] [place] [address] [facility] [place] Comprehensive metabolic 2000 panelon 03-11-2023 Albumin [Mass/Vol] 3.6 g/dL Low 3.9-4.9 [facility] Comment on above: Order Comment: Speci men Type: BLOOD SPECIMEN Ordering Facility: [facility] Address: [address] [place] [address] Performed By: #### 2 4323-8 #### [facility] CLIA [id number] [address] [place] ALP [Catalytic activity/Vol] 78 U/L Normal 34-123 [facility] Comment on above: Order Comment: Speci men Type: BLOOD SPECIMEN Ordering Facility: [facility] Address: [address] [place] [address] Performed By: #### 2 4323-8 #### [facility] CLIA [id number] [address] [place] [address] [place] ALT [Catalytic activity/Vol] 25 U/L Normal 7-38 [facility] Comment on above: Order Comment: Speci men Type: BLOOD SPECIMEN Ordering Facility: [facility] Address: [address] [place] [address] Performed By: #### 2 4323-8 #### [facility] CLIA [id number] [address] [place] Anion gap [Moles/Vol] 8 mmol/L Low 9-18 [facility] Comment on above: Order Comment: Speci men Type: BLOOD SPECIMEN Ordering Facility: [facility] Address: [address] [place] [address] Performed By: #### 2 4323-8 #### [facility] CLIA [id number] [address] [place] AST [Catalytic activity/Vol] 45 U/L High 13-35 [facility] Comment on above: Order Comment: Speci men Type: BLOOD SPECIMEN Ordering Facility: [facility] Address: [address] [place] [address] Performed By: #### 2 4323-8 #### [facility] CLIA [id number] [address] [place] Bilirubin [Mass/Vol] 0.7 mg/dL Normal 0.2-1.3 [facility] Comment on above: Order Comment: Speci men Type: BLOOD SPECIMEN Ordering Facility: [facility] Address: [address] [place] [address] Performed By: #### 2 4323-8 #### [facility] CLIA [id number] [address] [place] [address] [place] Calcium [Mass/Vol] 8.1 mg/dL Low 8.5-10.2 [facility] Comment on above: Order Comment: Speci men Type: BLOOD SPECIMEN Ordering Facility: [facility] Address: [address] [place] [address] Performed By: #### 2 4323-8 #### [facility] CLIA [id number] [address] [place] [address] [place] Chloride [Moles/Vol] 104 mmol/L Normal 97-105 [facility] Comment on above: Order Comment: Speci men Type: BLOOD SPECIMEN Ordering Facility: [facility] Address: [address] [place] [address] Performed By: #### 2 4323-8 #### [facility] CLIA [id number] [address] [place] CO2 [Moles/Vol] 26 mmol/L Normal 22-30 [facility] Comment on above: Order Comment: Speci men Type: BLOOD SPECIMEN Ordering Facility: [facility] Address: [address] [place] [address] Performed By: #### 2 4323-8 #### [facility] CLIA [id number] [address] [place] [address] [place] Creatinine [Mass/Vol] 0.78 mg/dL Normal 0.58-0.96 [facility] Comment on above: Order Comment: Speci men Type: BLOOD SPECIMEN Ordering Facility: [facility] Address: [address] [place] [address] Performed By: #### 2 4323-8 #### [facility] CLIA [id number] [address] [place] [address] [facility] [place] Creatinine and Glomerular filtration rate.predicted panel (S/P/Bld) 90 mL/min/1.73m??? Normal >=60 [facility] Comment on above: Order Comment: Speci men Type: BLOOD SPECIMEN Ordering Facility: [facility] Address: [address] [place] [address] Result Comment: Chastity mated Glomerular Filtration Rate (eGFR) is calculated using the 2020 CKD-EPI creatinine equation. This equation utilizes serum creatinine, sex, and age as parameters. The creatinine assay has traceable calibration to isotope dilution-mass spectrometry. Refer to KDIGO guidelines for clinical interpretation. In patients with unstable renal function, e.g. those with acute kidney injury, the eGFR may not accurately reflect actual GFR. Performed By: #### 2 4323-8 #### [facility] CLIA [id number] [address] [place] [address] [place] Glucose [Mass/Vol] 68 mg/dL Low 74-99 [facility] Comment on above: Order Comment: Bill mcgarry Type: BLOOD SPECIMEN Ordering Facility: [facility] Address: [address] [place] [address] Result Comment: The [place] [employer] (ADA) provides guidance for cutoff values for fasting glucose and random glucose. The ADA defines fasting as no caloric intake for at least 8 hours. Fasting plasma glucose results between 100 to 125 mg/dL indicate increased risk for diabetes (prediabetes). Fasting plasma glucose results greater than or equal to 126 mg/dL meet the criteria for diagnosis of diabetes. In the absence of unequivocal hyperglycemia, results should be confirmed by repeat testing. In a patient with classic symptoms of hyperglycemia or hyperglycemic crisis, random plasma glucose results greater than or equal to 200 mg/dL meet the criteria for diagnosis of diabetes. Reference: Standards of Medical Care in Diabetes 2016, [place] [employer]. Diabetes Care. 2016.39(Suppl 1). Performed By: #### 2 4323-8 #### [facility] CLIA [id number] [address] [place] Potassium [Moles/Vol] 4.0 mmol/L Normal 3.7-5.1 [facility] Comment on above: Order Comment: Bill mcgarry Type: BLOOD SPECIMEN Ordering Facility: [facility] Address: [address] [place] [address] Performed By: #### 2 4323-8 #### [facility] CLIA [id number] [address] [place] [address] [place] Protein [Mass/Vol] 5.7 g/dL Low 6.3-8.0 [facility] Comment on above: Order Comment: Bill mcgarry Type: BLOOD SPECIMEN Ordering Facility: [facility] Address: [address] [place] [address] Performed By: #### 2 4323-8 #### [facility] CLIA [id number] [address] Sodium [Moles/Vol] 138 mmol/L Normal 136-144 [facility] Comment on above: Order Comment: Speci men Type: BLOOD SPECIMEN Ordering Facility: [facility] Address: [address] [place] [address] Performed By: #### 2 4323-8 #### [facility] CLIA [id number] [address] [place] Urea nitrogen [Mass/Vol] 9 mg/dL Normal 7-21 [facility] Comment on above: Order Comment: Speci men Type: BLOOD SPECIMEN Ordering Facility: [facility] Address: [address] [place] [address] Performed By: #### 2 4323-8 #### [facility] CLIA [id number] [address] [facility] XR ABD 2V SUPINE W UPR/DECUB /CTLon 03-11-2023 XR ABD 2V SUPINE W UPR/DECUB/CTL * * *Final Report* * * DATE OF EXAM: Mar 11 2023 9:28AM MDX 5356 - XR ABD 2V SUPINE W UPR/DECUB/CTL / PROCEDURE REASON: Bowel obstruction suspected * * * * Physician Interpretation * * * * TECHNIQUE: XR ABD 2V SUPINE W UPR/DECUB/CTL EXAM DATE: 03/11/2023 9:28 AM COMPARISON STUDIES: CT abdomen and pelvis 1 day prior CLINICAL HISTORY: Bowel obstruction suspected RESULT: No gross free intraperitoneal air. Several dilated small bowel loops in the left abdomen up to 3.4 cm. Surgical clips left abdomen. Osseous degenerative changes. Left hip arthroplasty. IMPRESSION: Several dilated small bowel loops, compatible with history of obstruction Tap Grinder: GRANT Transcribe Date/Time: Mar 11 2023 9:41A Dictated by : ANOOP GORDON MD This examination was interpreted and the report reviewed and electronically signed by: ANOOP GORDON MD on Mar 11 2023 9:44AM EST [id number] [facility] HEALTH 03-10-2023 ALLIED [facility] HNO ID: [id number] Author: Janelle Villanueva CT Service: Radiology Author Type: Technologist Type: Allied Health Filed: 03/10/2023 12:00 PM Note Text: Radiology Service Progress Note PATIENT NAME: Александр Ambriz DATE OF SERVICE: March 10, 2023 TIME: 12:00 PM PATIENT IDENTITY VERIFICATION COMPLETED USING TWO (2) IDENTIFIERS: Name and Date of confirmed by patient verbally and Name and Date of confirmed by identification band. FALL SCREENING: Has the patient had 2 falls in the last year or 1 fall with injury or currently using an Ambulatory Assistive Device (Walker, Cane, Wheelchair, Crutches, etc.)? Emergency Room Patient: Screened in ED PATIENT GENDER DATA: Female. status: : No status: NO. PATIENT RELEVANT IMPLANT DATA REVIEWED: Not Applicable RADIOLOGY DEPARTMENT: CT; Exam(s) Completed: Abdomen/Pelvis PERIPHERAL IV DATA: Inpatient: see LDA documentation SIGNED BY: JOHN Ott March 10, 2023 12:00 PM Normal [facility] CBC W Auto Differential pane l (Bld)on 03-10-2023 Basophils (Bld) [#/Vol] 10*3/uL Normal <0.11 [facility] Comment on above: Order Comment: Specwhit mcgarry Type: BLOOD SPECIMEN Ordering Facility: [facility] Address: [address] [place] [address] Performed By: #### 3 040-3, 73522-8 #### [facility] CLIA [id number] [address] [place] [address] [place] Basophils/100 WBC (Bld) 0.3 % Normal [facility] Comment on above: Order Comment: Speci zeferino Type: BLOOD SPECIMEN Ordering Facility: [facility] Address: [address] [place] [address] Performed By: #### 3 040-3, 14069-8 #### [facility] CLIA [id number] [address] [place] [address] [place] Differential cell count method Nom (Bld) Auto Normal [facility] Comment on above: Order Comment: Speci zeferino Type: BLOOD SPECIMEN Ordering Facility: [facility] Address: [address] [place] [address] Performed By: #### 3 3, #### [facility] CLIA [id number] [address] [place] [address] [place] Eosinophils (Bld) [#/Vol] 0.11 10*3/uL Normal <0.46 [facility] Comment on above: Order Comment: Speci men Type: BLOOD SPECIMEN Ordering Facility: [facility] Address: [address] [place] [address] Performed By: #### 3 , #### [facility] CLIA [id number] [address] [place] [address] [place] Eosinophils/100 WBC (Bld) 1.8 % Normal [facility] Comment on above: Order Comment: Speci men Type: BLOOD SPECIMEN Ordering Facility: [facility] Address: [address] [place] [address] Performed By: #### 3 3, #### [facility] CLIA [id number] [address] [place] Erythrocyte distribution width (RBC) [Ratio] 14.0 % Normal 11.5-15.0 [facility] Comment on above: Order Comment: Speci men Type: BLOOD SPECIMEN Ordering Facility: [facility] Address: [address] [place] [address] Performed By: #### 3 3, #### [facility] CLIA [id number] [address] [place] Hematocrit (Bld) [Volume fraction] 38.1 % Normal 36.0-46.0 [facility] Comment on above: Order Comment: Speci men Type: BLOOD SPECIMEN Ordering Facility: [facility] Address: [address] [place] [address] Performed By: #### 3 3, #### [facility] CLIA [id number] [address] [place] Hemoglobin (Bld) [Mass/Vol] 12.5 g/dL Normal 11.5-15.5 [facility] Comment on above: Order Comment: Speci men Type: BLOOD SPECIMEN Ordering Facility: [facility] Address: [address] [place] [address] Performed By: #### 3 3, #### [facility] CLIA [id number] [address] Immature granulocytes (Bld) [#/Vol] 10*3/uL Normal <0.10 [facility] Comment on above: Order Comment: Speci men Type: BLOOD SPECIMEN Ordering Facility: [facility] Address: [address] [place] [address] Performed By: #### 3 , #### [facility] CLIA [id number] [address] Immature granulocytes/100 WBC (Bld) 0.2 % Normal [facility] Comment on above: Order Comment: Speci men Type: BLOOD SPECIMEN Ordering Facility: [facility] Address: [address] [place] [address] Performed By: #### 3 , #### [facility] CLIA [id number] [address] [place] Lymphocytes (Bld) [#/Vol] 1.85 10*3/uL Normal 1.00-4.00 [facility] Comment on above: Order Comment: Speci men Type: BLOOD SPECIMEN Ordering Facility: [facility] Address: [address] [place] [address] Performed By: #### 3 , #### [facility] CLIA [id number] [address] Lymphocytes/100 WBC (Bld) 29.8 % Normal [facility] Comment on above: Order Comment: Speci men Type: BLOOD SPECIMEN Ordering Facility: [facility] Address: [address] [place] [address] Performed By: #### 3 , #### [facility] CLIA [id number] [address] [place] MCH (RBC) [Entitic mass] 26.9 pg Normal 26.0-34.0 [facility] Comment on above: Order Comment: Speci men Type: BLOOD SPECIMEN Ordering Facility: [facility] Address: [address] [place] [address] Performed By: #### 3 -3, #### [facility] CLIA [id number] [address] MCHC (RBC) [Mass/Vol] 32.8 g/dL Normal 30.5-36.0 [facility] Comment on above: Order Comment: Speci men Type: BLOOD SPECIMEN Ordering Facility: [facility] Address: [address] [place] [address] Performed By: #### 3 3, #### [facility] CLIA [id number] [address] [place] [facility] MCV (RBC) [Entitic vol] 82.1 fL Normal 80.0-100.0 [facility] Comment on above: Order Comment: Speci men Type: BLOOD SPECIMEN Ordering Facility: [facility] Address: [address] [place] [address] Performed By: #### 3 3, #### [facility] CLIA [id number] [address] [place] Monocytes (Bld) [#/Vol] 0.59 10*3/uL Normal <0.87 [facility] Comment on above: Order Comment: Speci men Type: BLOOD SPECIMEN Ordering Facility: [facility] Address: [address] [place] [address] Performed By: #### 3 3, #### [facility] CLIA [id number] [address] Monocytes/100 WBC (Bld) 9.5 % Normal [facility] Comment on above: Order Comment: Speci men Type: BLOOD SPECIMEN Ordering Facility: [facility] Address: [address] [place] [address] Performed By: #### 3 040-3, #### [facility] CLIA [id number] [address] [place] Neutrophils (Bld) [#/Vol] 3.62 10*3/uL Normal 1.45-7.50 [facility] Comment on above: Order Comment: Speci men Type: BLOOD SPECIMEN Ordering Facility: [facility] Address: [address] [place] [address] Performed By: #### 3 -3, #### [facility] CLIA [id number] [address] [place] [address] [place] Neutrophils/100 WBC (Bld) 58.4 % Normal [facility] Comment on above: Order Comment: Speci men Type: BLOOD SPECIMEN Ordering Facility: [facility] Address: [address] [place] [address] Performed By: #### 3 , #### [facility] CLIA [id number] [address] [place] [address] [place] Nucleated RBC (Bld) [#/Vol] 10*3/uL Normal <0.01 [facility] Comment on above: Order Comment: Speci men Type: BLOOD SPECIMEN Ordering Facility: [facility] Address: [address] [place] [address] Performed By: #### 3 , #### [facility] CLIA [id number] [address] [place] Nucleated RBC/100 WBC (Bld) [Ratio] 0.0 /100 WBC Normal [facility] Comment on above: Order Comment: Speci men Type: BLOOD SPECIMEN Ordering Facility: [facility] Address: [address] [place] [address] Performed By: #### 3 3, #### [facility] CLIA [id number] [address] [place] [address] [place] Platelet mean volume (Bld) [Entitic vol] 8.4 fL Low 9.0-12.7 [facility] Comment on above: Order Comment: Speci men Type: BLOOD SPECIMEN Ordering Facility: [facility] Address: [address] [place] [address] Performed By: #### 3 3, #### [facility] CLIA [id number] [address] [place] Platelets (Bld) [#/Vol] 195 10*3/uL Normal 150-400 [facility] Comment on above: Order Comment: Speci men Type: BLOOD SPECIMEN Ordering Facility: [facility] Address: [address] [place] [address] Performed By: #### 3 040-3, 74466-0 #### [facility] CLIA [id number] [address] [place] [address] [place] RBC (Bld) [#/Vol] 4.64 10*6/uL Normal 3.90-5.20 [facility] Comment on above: Order Comment: Speci men Type: BLOOD SPECIMEN Ordering Facility: [facility] Address: [address] [place] [address] Performed By: #### 3 040-3, 35891-0 #### [facility] CLIA [id number] [address] [place] [address] [place] WBC (Bld) [#/Vol] 6.20 10*3/uL Normal 3.70-11.00 [facility] Comment on above: Order Comment: Speci men Type: BLOOD SPECIMEN Ordering Facility: [facility] Address: [address] [place] [address] Performed By: #### 3 040-3, 71987-8 #### [facility] CLIA [id number] [address] [place] CT ABD/PEL W IVCONon 023 CT ABD/PEL W IVCON * * *Final Report* * * DATE OF EXAM: Mar 10 2023 12:04PM [facility] [place] ABD/PEL W IVCON / PROCEDURE REASON: Abdominal pain, acute, nonlocalized * * * * Physician Interpretation * * * * EXAMINATION: CT ABDOMEN AND PELVIS WITH IV CONTRAST HISTORY: Clinical information: Abdominal pain, acute, nonlocalized Nausea and Vomiting: since last night around 11 pm. pt has gastric bypass in 2011 7 has not vomited since. TECHNIQUE: CT of the abdomen and pelvis was performed using standard technique, scanning from just above the dome of the diaphragm to the symphysis pubis. MQ: CTAP_3 Contrast: IV: 100 ml of : ml of CT Radiation dose: Integrated Dose-length product (DLP) for this visit = 835 mGy*cm. CT Dose Reduction Employed: Automated exposure control(AEC) and iterative recon COMPARISON: 07/21/2020 Result: CT ABDOMEN: Lower thorax: Unremarkable. Liver: No mass. Homogeneous texture. Biliary: There appears to be mild intrahepatic bile duct dilatation and mild prominence of the common duct. GI tract: * There is moderate dilatation of numerous loops of proximal small bowel in the jejunum up to 3.4 cm in size. There appears to be a transition zone in the lower abdomen and pelvic area images axial 2 and coronal image 601/71 * There is moderate free fluid in the pelvic area and a smaller amount around the liver and spleen * Evidence of previous gastric bypass Spleen: Spleen is unremarkable. Pancreas: No mass or duct dilation. Adrenals: Adrenal glands are unremarkable. Kidneys: RIGHT kidney: No masses No calcifications are seen. No hydronephrosis is seen. LEFT kidney: No masses No calcifications are seen. No hydronephrosis is seen. Lymph nodes: No evidence of adenopathy. Mesentery/Peritoneum: No ascites or mass. Vasculature: No evidence of dilatation of the abdominal aorta. Bony structures: No fractures or dislocations are seen. Soft tissues: No acute findings. CT PELVIS FINDINGS: Lymph Nodes: No enlarged lymph nodes. Urinary bladder: Unremarkable Beveller Operator (topogram) images: No additional findings IMPRESSION: 1. Findings compatible with a chemical obstruction of the proximal small bowel. There are multiple fluid-filled loops of small bowel 2. There is free fluid in the pelvis and also a smaller amount in the area around the liver and spleen 3. Evidence of previous gastric bypass surgery noted Tap Grinder: GRANT Transcribe Date/Time: Mar 10 2023 12:29P Dictated by : VISH VELASQUEZ DO This examination was interpreted and the report reviewed and electronically signed by: VISH VELASQUEZ DO on Mar 10 2023 12:55PM EST [id number] Normal [facility] Comprehensive metabolic 2000 panelon 03-10-2023 Albumin [Mass/Vol] 4.0 g/dL Normal 3.9-4.9 [facility] Comment on above: Order Comment: Speci men Type: BLOOD SPECIMEN Ordering Facility: [facility] Address: [address] [place] [address] Performed By: #### 3 040-3, 98715-6 #### [facility] CLIA [id number] [address] ALP [Catalytic activity/Vol] 75 U/L Normal 34-123 [facility] Comment on above: Order Comment: Speci men Type: BLOOD SPECIMEN Ordering Facility: [facility] Address: [address] [facility] [place] [address] Performed By: #### 3 040-3, 56751-8 #### [facility] CLIA [id number] [address] ALT [Catalytic activity/Vol] 13 U/L Normal 7-38 [facility] Comment on above: Order Comment: Speci men Type: BLOOD SPECIMEN Ordering Facility: [facility] Address: [address] [place] [address] Performed By: #### 3 040-3, 94664-9 #### [facility] CLIA [id number] [address] Anion gap [Moles/Vol] 7 mmol/L Low 9-18 [facility] Comment on above: Order Comment: Speci men Type: BLOOD SPECIMEN Ordering Facility: [facility] Address: [address] [place] [address] Performed By: #### 3 040-3, 47733-8 #### [facility] CLIA [id number] [address] AST [Catalytic activity/Vol] 23 U/L Normal 13-35 [facility] Comment on above: Order Comment: Speci men Type: BLOOD SPECIMEN Ordering Facility: [facility] Address: [address] [place] [address] Performed By: #### 3 040-3, 04720-8 #### [facility] CLIA [id number] [address] Bilirubin [Mass/Vol] 0.6 mg/dL Normal 0.2-1.3 [facility] Comment on above: Order Comment: Speci men Type: BLOOD SPECIMEN Ordering Facility: [facility] Address: [address] [place] [address] Performed By: #### 3 -3, #### [facility] CLIA [id number] [address] [place] Calcium [Mass/Vol] 8.6 mg/dL Normal 8.5-10.2 [facility] Comment on above: Order Comment: Speci men Type: BLOOD SPECIMEN Ordering Facility: [facility] Address: [address] [place] [address] Performed By: #### 3 -3, #### [facility] CLIA [id number] [address] [place] [address] [place] Chloride [Moles/Vol] 104 mmol/L Normal 97-105 [facility] Comment on above: Order Comment: Speci men Type: BLOOD SPECIMEN Ordering Facility: [facility] Address: [address] [place] [address] Performed By: #### 3 -3, #### [facility] CLIA [id number] [address] CO2 [Moles/Vol] 27 mmol/L Normal 22-30 [facility] Comment on above: Order Comment: Speci men Type: BLOOD SPECIMEN Ordering Facility: [facility] Address: [address] [place] [address] Performed By: #### 3 -3, #### [facility] CLIA [id number] [address] [place] Creatinine [Mass/Vol] 0.73 mg/dL Normal 0.58-0.96 [facility] Comment on above: Order Comment: Speci men Type: BLOOD SPECIMEN Ordering Facility: [facility] Address: [address] [place] [address] Performed By: #### 3 040-3, #### [facility] CLIA [id number] [address] Creatinine and Glomerular filtration rate.predicted panel (S/P/Bld) 98 mL/min/1.73m??? Normal >=60 [facility] Comment on above: Order Comment: Speci men Type: BLOOD SPECIMEN Ordering Facility: [facility] Address: [address] [place] [address] Result Comment: Chastity mated Glomerular Filtration Rate (eGFR) is calculated using the 2020 CKD-EPI creatinine equation. This equation utilizes serum creatinine, sex, and age as parameters. The creatinine assay has traceable calibration to isotope dilution-mass spectrometry. Refer to KDIGO guidelines for clinical interpretation. In patients with unstable renal function, e.g. those with acute kidney injury, the eGFR may not accurately reflect actual GFR. Performed By: #### 3 040-3, 74770-8 #### [facility] CLIA [id number] [address] [place] [address] [place] Glucose [Mass/Vol] 90 mg/dL Normal 74-99 [facility] Comment on above: Order Comment: Bill mcgarry Type: BLOOD SPECIMEN Ordering Facility: [facility] Address: [address] [place] [address] Result Comment: The [place] [employer] (ADA) provides guidance for cutoff values for fasting glucose and random glucose. The ADA defines fasting as no caloric intake for at least 8 hours. Fasting plasma glucose results between 100 to 125 mg/dL indicate increased risk for diabetes (prediabetes). Fasting plasma glucose results greater than or equal to 126 mg/dL meet the criteria for diagnosis of diabetes. In the absence of unequivocal hyperglycemia, results should be confirmed by repeat testing. In a patient with classic symptoms of hyperglycemia or hyperglycemic crisis, random plasma glucose results greater than or equal to 200 mg/dL meet the criteria for diagnosis of diabetes. Reference: Standards of Medical Care in Diabetes 2016, [place] [employer]. Diabetes Care. 2016.39(Suppl 1). Performed By: #### 3 040-3, 40085-9 #### [facility] CLIA [id number] [address] [place] [address] [place] Potassium [Moles/Vol] 4.0 mmol/L Normal 3.7-5.1 [facility] Comment on above: Order Comment: Bill mcgarry Type: BLOOD SPECIMEN Ordering Facility: [facility] Address: [address] [place] [address] Performed By: #### 3 040-3, 49374-8 #### [facility] CLIA [id number] [address] Protein [Mass/Vol] 6.6 g/dL Normal 6.3-8.0 [facility] Comment on above: Order Comment: Speci men Type: BLOOD SPECIMEN Ordering Facility: [facility] Address: [address] [place] [address] Performed By: #### 3 040-3, 92889-4 #### [facility] CLIA [id number] [address] Sodium [Moles/Vol] 138 mmol/L Normal 136-144 [facility] Comment on above: Order Comment: Speci men Type: BLOOD SPECIMEN Ordering Facility: [facility] Address: [address] [place] [address] Performed By: #### 3 040-3, 10508-9 #### [facility] CLIA [id number] [address] Urea nitrogen [Mass/Vol] 15 mg/dL Normal 7-21 [facility] Comment on above: Order Comment: Speci men Type: BLOOD SPECIMEN Ordering Facility: [facility] Address: [address] [place] [address] Performed By: #### 3 040-3, 61915-0 #### [facility] CLIA [id number] [address] ED NOTEon 03-10-2023 ED NOTE HNO ID: [id number] Author: Sim Monson RN Service: Nursing Author Type: Registered Nurse Type: ED Notes Filed: 03/10/2023 3:58 PM Note Text: Report to Bakari Rodriguez RN and to PACU. No questions at this time. [facility] ED PROV NOTEon 03-10-2023 ED PROV NOTE HNO ID: [id number] Author: Daiana Jackson MD Service: ? Author Type: Physician Type: ED Provider Notes Filed: 03/10/2023 1:30 PM Note Text: ED Provider Note Patient Name: Александр Ambriz : 1970 SERVICE DATE: 03/10/23 History Patient presents with: Nausea AND Vomiting: since last night around 11 pm. pt has gastric bypass in 12 has not vomited since. 52-year-old female, with a history of gastric bypass surgery, presents with abdominal pain and vomiting. This started at 11:00 last night. She has had several episodes of emesis, typically she does not have a full vomit due to her gastric bypass surgery so this was concerning. She has epigastric abdominal pain. No chest pain or shortness of breath. No lower abdominal pain. Denies diarrhea. She has had chills but no fever. No cough congestion sore throat. No one around her is sick. No travel or going out to eat recently. No other change in her health History provided by: Patient and relative History reviewed. No pertinent past medical history. PAST SURGICAL HISTORY Procedure Laterality Date GASTRIC BYPASS HX 2011 No family history on file. Social History Tobacco Use Smoking status: Never Smokeless tobacco: Never Vaping Use Vaping Use: Never used Substance and Sexual Activity Alcohol use: Yes Comment: 4 times a month Drug use: Never Sexual activity: Not on file ALLERGIES No Known Allergies Review of Systems Constitutional: Positive for chills. Negative for fever. HENT: Negative. Eyes: Negative for photophobia and visual disturbance. Respiratory: Negative for cough and shortness of breath. Cardiovascular: Negative for chest pain. Gastrointestinal: Positive for abdominal pain, nausea and vomiting. Negative for constipation and diarrhea. Genitourinary: Negative for difficulty urinating and dysuria. Musculoskeletal: Negative for back pain. Skin: Negative for rash and wound. Neurological: Negative for dizziness, light-headedness, numbness and headaches. Hematological: Negative. Psychiatric/Behavioral : Negative. Physical Exam Vitals BP Pulse Temp Temp src Resp SpO2 Weight Height 03/10/23 1002 03/10/23 1002 03/10/23 1002 03/10/23 1002 03/10/23 1000 03/10/23 1002 03/10/23 1000 03/10/23 1000 131/80 70 36.6 ?C (97.8 ?F) Temporal 18 96 % 96.2 kg (212 lb) 1.702 m (5' 7 ) Physical Exam Vitals and nursing note reviewed. Constitutional: General: She is in acute distress (mildy from pain). Appearance: She is not toxic-appearing. HENT: Head: Normocephalic and atraumatic. Nose: Nose normal. Mouth/Throat: Mouth: Mucous membranes are moist. Pharynx: Oropharynx is clear. Eyes: Extraocular Movements: Extraocular movements intact. Conjunctiva/sclera: Conjunctivae normal. Cardiovascular: Rate and Rhythm: Normal rate and regular rhythm. Pulmonary: Effort: Pulmonary effort is normal. No respiratory distress. Breath sounds: Normal breath sounds. No wheezing. Abdominal: General: There is no distension. Palpations: Abdomen is soft. Tenderness: There is abdominal tenderness (epigastric). There is no guarding. Musculoskeletal: General: Normal range of motion. Cervical back: Normal range of motion and neck supple. No rigidity. Skin: General: Skin is warm and dry. Neurological: General: No focal deficit present. Mental Status: She is alert and oriented to person, place, and time. Cranial Nerves: No cranial nerve deficit. Psychiatric: Mood and Affect: Mood normal. Diagnostic Testing ED Labs Ordered and Reviewed - No data to display Procedures ED Course / Clinical Impression Clinical Impressions as of 03/10/23 1318 SBO (small bowel obstruction) (HCC) Epigastric pain Nausea and vomiting, unspecified vomiting type H/O gastric bypass COVID-19 test performed per [facility] [place] policy for suspected COVID community exposure. MDM / Disposition / Plan Patient presented to the ED with abdominal pain and vomiting since last night. History of gastric bypass surgery. On exam she appears to not feel well. Abdomen soft with tenderness in the epigastrium. CT shows small bowel obstruction. Discussed with Dr. Courtney who will admit. History and Record Review Clinical information obtained from an independent historian. History obtained from or confirmed by: family member. Differential Diagnoses - SBO is more likely for the following reason(s): seen on CT - appendicitis is less likely for the following reason(s): no evidence on imaging - diverticulitis is less likely for the following reason(s): no evidence on imaging - perforation is less likely for the following reason(s): no evidence on imaging - abscess is less likely for the following reason(s): no evidence on imaging Management Management of the patient was discussed with:admitting team Discussion with admitting team included: Dr Courtney Radiology Reports CT ABD/PEL W I (more content not included)... Normal [facility] FLUABV+SARS-CoV-2+RSV Pnl Re sp VONNIE+probeon 03-10-2023 FLUABV+SARS-CoV-2+RS V Pnl Resp VONNIE+probe COVID 19 RESULT: Not detected The method used is RT-PCR or an equivalent NAAT method. Reference Range(the expected result in uninfected individuals): Not detected INFLUENZA A PCR: Not detected INFLUENZA B PCR: Not detected RSV PCR: Not detected Normal [facility] Comment on above: Performed By: #### 3 040-3, 28417-5 #### [facility] CLIA [id number] [address] [place] HISTORY PHYSICALon HISTORY PHYSICAL HNO ID: [id number] Author: Aster Courtney MD Service: General Surgery Author Type: Physician Type: HANDP Filed: 03/10/2023 2:10 PM Note Text: HISTORY AND PHYSICAL EXAMINATION SERVICE DATE: 03/10/2023 SERVICE TIME: 2:06 PM PRIMARY CARE PHYSICIAN: Isaac Mina APRN.NARCOTICS INVESTIGATOR Subjective CHIEF COMPLAINT: Small bowel obstruction HPI: This is a 52 year old female who presents with nausea and vomiting. The patient notes the onset of abdominal discomfort and vomiting beginning approximate 11:00 last night. The patient has a previous history of gastric bypass with Loreta-en-Y anastomosis. She normally does not vomit. She presented emergency department this morning with these complaints. ER department notation included: Patient presents with: Nausea AND Vomiting: since last night around 11 pm. pt has gastric bypass in 12 has not vomited since. 52-year-old female, with a history of gastric bypass surgery, presents with abdominal pain and vomiting. This started at 11:00 last night. She has had several episodes of emesis, typically she does not have a full vomit due to her gastric bypass surgery so this was concerning. She has epigastric abdominal pain. No chest pain or shortness of breath. No lower abdominal pain. Denies diarrhea. She has had chills but no fever. No cough congestion sore throat. No one around her is sick. No travel or going out to eat recently. No other change in her health CT scan of the abdomen and pelvis was obtained. This demonstrated: IMPRESSION: 1. Findings compatible with a chemical obstruction of the proximal small bowel. There are multiple fluid-filled loops of small bowel 2. There is free fluid in the pelvis and also a smaller amount in the area around the liver and spleen 3. Evidence of previous gastric bypass surgery noted White blood cell count was in the normal range. The patient states she has not vomited since earlier today. She underwent gastric bypass surgery 2011. In 2020 she was having recurring symptoms and had a CT scan obtained at the [facility] system which demonstrated internal hernia. My review of the CAT scan demonstrated internal swirl pattern in the anastomosis on the contralateral side. My review of this CAT scan is felt to be consistent with adhesive small bowel obstruction. FUNCTIONAL STATUS: Independent History reviewed. No pertinent past medical history. PAST SURGICAL HISTORY Procedure Laterality Date GASTRIC BYPASS HX 2011 No family history on file. Social History Tobacco Use Smoking status: Never Smokeless tobacco: Never Vaping Use Vaping Use: Never used Substance Use Topics Alcohol use: Yes Comment: 4 times a month Drug use: Never (Not in a hospital admission) ALLERGIES No Known Allergies COMPLETE REVIEW OF SYSTEMS: Constitutional: Positive for chills. Negative for fever. HENT: Negative. Eyes: Negative for photophobia and visual disturbance. Respiratory: Negative for cough and shortness of breath. Cardiovascular: Negative for chest pain. Gastrointestinal: Positive for abdominal pain, nausea and vomiting. Negative for constipation and diarrhea. Genitourinary: Negative for difficulty urinating and dysuria. Musculoskeletal: Negative for back pain. Skin: Negative for rash and wound. Neurological: Negative for dizziness, light-headedness, numbness and headaches. Hematological: Negative. Psychiatric/Behavioral : Negative. Objective PHYSICAL EXAM: Physical Exam Performed: GENERAL: Alert, no distress, cooperative EYES: PERRLA, EOMI OROPHARYNX: Lips, mucosa, and tongue normal. Teeth and gums normal. Oropharynx normal. LUNGS: Lungs clear to auscultation, Good diaphragmatic excursion CARDIAC: Normal S1 and S2; no rubs, murmurs, or gallops ABDOMEN: Abdomen soft, non-tender, BS normal, No masses or organomegaly BP 115/67 Pulse 71 Temp (Src) 97.8 (Temporal) Resp 18 Ht 5' 7 (1.70m) Wt 212 lb (96.2kg) SpO2 96% BMI 33.20 kg/(m2). O2 Therapy: Room Air DATA: Diagnostic tests reviewed for today's visit: Most recent labs and imaging results. Assessment/Plan Active Hospital Problems Small bowel obstruction-likely adhesive disease No active problems on problem list I plan to admit the patient for monitoring. Since she has no significant gastric pouch and is not vomiting currently will not plan for NG tube unless she fails antiemetics. We will plan for n.p.o. status IV fluids and follow-up x-ray in the morning. We discussed that most small bowel obstructions resolved with conservative management. If her symptoms worsen may repeat CT scan and/or may require surgical intervention. Active Problems: * No active hospital problems. * Medication and Non-Pharmacologic VTE Prophylaxis/Anticoagul ants VTE Prophylaxis: VTE prophylaxis appropriate SIGNATURE: Aster Courtney MD PATIENT NAME: Александр Ambriz DATE: March 10, 2023 TIME: 2:06 PM Normal [facility] Lipase SerPl-cCncon 03-10-20 Lipase [Catalytic activity/Vol] 25 U/L Normal [facility] Comment on above: Order Comment: Speci zeferino Type: BLOOD SPECIMEN Ordering Facility: [facility] Address: [address] [place] [address] Performed By: #### 3 040-3, 38860-8 #### [facility] CLIA [id number] [address] [place] URINALYSIS, REFLEX MICROSCOP ICon 03-10-2023 Bilirubin Ql (U) Negative Normal Negative [facility] Comment on above: Order Comment: Bill mcgarry Type: BLOOD SPECIMEN Ordering Facility: [facility] Address: [address] [place] [address] Performed By: #### 3 040-3, 39927-0 #### [facility] CLIA [id number] [address] [place] [address] [place] Clarity (Unsp spec) Clear Normal Clear [facility] Comment on above: Order Comment: Speci men Type: BLOOD SPECIMEN Ordering Facility: [facility] Address: [address] [place] [address] Performed By: #### 3 040-3, 24075-6 #### [facility] CLIA [id number] [address] Color (U) Yellow Normal Yellow [facility] Comment on above: Order Comment: Speci men Type: BLOOD SPECIMEN Ordering Facility: [facility] Address: [address] [place] [address] Performed By: #### 3 040-3, 41402-6 #### [facility] CLIA [id number] [address] Glucose Test strip (U) [Mass/Vol] Negative Normal Negative [facility] Comment on above: Order Comment: Speci men Type: BLOOD SPECIMEN Ordering Facility: [facility] Address: [address] [place] [address] Performed By: #### 3 040-3, 20706-5 #### [facility] CLIA [id number] [address] [place] [address] [place] Hemoglobin Ql (U) Negative Normal Negative [facility] Comment on above: Order Comment: Speci men Type: BLOOD SPECIMEN Ordering Facility: [facility] Address: [address] [place] [address] Performed By: #### 3 040-3, #### [facility] CLIA [id number] [address] Ketones Ql (U) Trace Abnormal Negative [facility] Comment on above: Order Comment: Speci men Type: BLOOD SPECIMEN Ordering Facility: [facility] Address: [address] [place] [address] Performed By: #### 3 3, #### [facility] CLIA [id number] [address] Leukocyte esterase Test strip Ql (U) Negative Normal Negative [facility] Comment on above: Order Comment: Speci men Type: BLOOD SPECIMEN Ordering Facility: [facility] Address: [address] [place] [address] Performed By: #### 3 040-3, #### [facility] CLIA [id number] [address] [place] [facility] Nitrite Ql (U) Negative Normal Negative [facility] Comment on above: Order Comment: Speci men Type: BLOOD SPECIMEN Ordering Facility: [facility] Address: [address] [place] [address] Performed By: #### 3 040-3, 48728-8 #### [facility] CLIA [id number] [address] pH (U) 6.5 [pH] Normal 5.0-8.0 [facility] Comment on above: Order Comment: Speci men Type: BLOOD SPECIMEN Ordering Facility: [facility] Address: [address] [place] [address] Performed By: #### 3 040-3, #### [facility] CLIA [id number] [address] Protein (U) [Mass/Vol] Negative Normal Negative [facility] Comment on above: Order Comment: Speci men Type: BLOOD SPECIMEN Ordering Facility: [facility] Address: [address] [place] [address] Performed By: #### 3 040-3, #### [facility] CLIA [id number] [address] Specific gravity (U) [Rel density] 1.010 Normal 1.005-1.030 [facility] Comment on above: Order Comment: Speci men Type: BLOOD SPECIMEN Ordering Facility: [facility] Address: [address] [place] [address] Performed By: #### 3 040-3, #### [facility] CLIA [id number] [address] [place] Urobilinogen Ql (U) 0.2 EU/dL Normal 0.2-1.0 EU/dL [facility] Comment on above: Order Comment: Speci men Type: BLOOD SPECIMEN Ordering Facility: [facility] Address: [address] [place] [address] Performed By: #### 3 040-3, #### [facility] CLIA [id number] [address] [place] [address] [place] Basic Metabolic Panelon 04-0 Anion gap [Moles/Vol] 6 mmol/L Normal 3-13 [facility] Comment on above: Performed By: #### P HOS3, BMP3, MG3, HEMOG #### [facility] [employer] [place] [address] [place] [address] Calcium [Mass/Vol] 8.3 mg/dL Low 8.4-10.4 [facility] Comment on above: Performed By: #### P HOS3, BMP3, MG3, HEMOG #### [facility] [address], [place] CO2 [Moles/Vol] 24 mmol/L Normal 22-30 [facility] Comment on above: Performed By: #### P HOS3, BMP3, MG3, HEMOG #### [place] [address] [place], [place] Glucose [Mass/Vol] 113 mg/dL High 70-100 [facility] Comment on above: Performed By: #### P HOS3, BMP3, MG3, HEMOG #### [place] [address] [place], [place] Urea nitrogen [Mass/Vol] 22 mg/dL High 7-20 [facility] Comment on above: Performed By: #### P HOS3, BMP3, MG3, HEMOG #### [place] [address] [place], [place] Creatinine [Mass/Vol] 0.80 mg/dL Normal 0.52-1.25 [facility] Comment on above: Performed By: #### P HOS3, BMP3, MG3, HEMOG #### [place] [address] [place], [place] GFR/1.73 sq M.predicted among blacks MDRD (S/P/Bld) [Vol rate/Area] mL/min/{1.73_m2} Normal >60 [facility] Comment on above: Performed By: #### P HOS3, BMP3, MG3, HEMOG #### [place] [address] [place], [place] GFR/1.73 sq M.predicted among non-blacks MDRD (S/P/Bld) [Vol rate/Area] 84.8 mL/min/{1.73_m2} Normal >60 [facility] Comment on above: Result Comment: KDIG O guidelines provide the following GFR categories: Stage GFR(ml/min/1.73 m2) Terms G1 >=90 Normal or high G2 60-89 Mildly decreased* G3a 45-59 Mildly to moderately decreased G3b 30-44 Moderately to severely decreased G4 15-29 Severely decreased G5 <15 Kidney failure *Relative to young adult level. In the absence of evidence of kidney damage, neither GFR category G1 nor G2 fulfill the criteria for CKD. The CKD-EPI equation is validated in individuals 18 years of age and older. Currently the best equation for estimating glomerular filtration rate (GFR) from serum creatinine in children is the Bedside Andujar equation. It is less accurate in patients with extremes of muscle mass, restriction of dietary protein, ingestion of creatine, extra-renal metabolism of creatinine, or treatment with medications that affect renal tubular creatinine secretion. Performed By: #### P HOS3, BMP3, MG3, HEMOG #### [address] Potassium [Moles/Vol] 3.6 mmol/L Normal 3.5-5.1 [facility] Comment on above: Performed By: #### P HOS3, BMP3, MG3, HEMOG #### [address] Chloride [Moles/Vol] 108 mmol/L High 98-107 [facility] Comment on above: Performed By: #### P HOS3, BMP3, MG3, HEMOG #### [address] Sodium [Moles/Vol] 139 mmol/L Normal 135-145 [facility] Comment on above: Performed By: #### P HOS3, BMP3, MG3, HEMOG #### [address] Anion gap [Moles/Vol] 6 mmol/L 3 - 13 mmol/L [facility] Work Phone: Calcium [Mass/Vol] 8.3 mg/dL Low 8.4 - 10. 4 mg/dL [facility] Work Phone: Chloride [Moles/Vol] 108 mmol/L High 98 - 10 7 mmol/L [facility] Work Phone: CO2 [Moles/Vol] 24 mmol/L 22 - 30 mmol/L [facility] Work Phone: Creatinine [Mass/Vol] 0.8 mg/dL 0.52 - 1.25 mg/dL [facility] Work Phone: EGFR IF NonAfrican [place] 84.8 mL/min >60 [facility] Work Phone: Comment on above: KDIGO guidelines pro vide the following GFR categories: Stage GFR(ml/min/1.73 m2) Terms G1 >=90 Normal or high G2 60-89 Mildly decreased* G3a 45-59 Mildly to moderately decreased G3b 30-44 Moderately to severely decreased G4 15-29 Severely decreased G5 <15 Kidney failure *Relative to young adult level. In the absence of evidence of kidney damage, neither GFR category G1 nor G2 fulfill the criteria for CKD. The CKD-EPI equation is validated in individuals 18 years of age and older. Currently the best equation for estimating glomerular filtration rate (GFR) from serum creatinine in children is the Bedside Andujar equation. It is less accurate in patients with extremes of muscle mass, restriction of dietary protein, ingestion of creatine, extra-renal metabolism of creatinine, or treatment with medications that affect renal tubular creatinine secretion. GFR/1.73 sq M predicted among blacks MDRD (S/P/Bld) [Vol rate/Area] mL/min/{1.73_m2} >60 mL/min [facility] Work Phone: Glucose [Mass/Vol] 113 mg/dL High 70 - 100 mg/dL [facility] Work Phone: Interpretation and review of laboratory results Abnormal [facility] Work Phone: Potassium [Moles/Vol] 3.6 mmol/L 3.5 - 5.1 mmol/L [facility] Work Phone: Sodium [Moles/Vol] 139 mmol/L 135 - 145 mmol/L [facility] Work Phone: Urea nitrogen [Mass/Vol] 22 mg/dL High 7 - 20 mg/dL [facility] Work Phone: CBCon 07-22-2020 Erythrocyte distribution width (RBC) [Ratio] 16.7 % High 11.5 - 14.5 % [facility] Work Phone: Hematocrit (Bld) [Volume fraction] 32.0 % Low 35.0 - 47.0 % [employer] Work Phone: Hemoglobin (Bld) [Mass/Vol] 10.1 g/dL Low 11.7 - 16.0 g/dL [employer] Work Phone: Interpretation and review of laboratory results Abnormal [facility] Work Phone: MCH (RBC) [Entitic mass] 22.3 pg Low 26.0 - 34.0 pg [employer] Work Phone: MCHC (RBC) [Mass/Vol] 31.4 % Low 32.0 - 36.0 % [employer] Phone: MCV (RBC) [Entitic vol] 71.0 fL Low 79.0 - 98.0 fL [employer] Phone: Platelet mean volume (Bld) [Entitic vol] 6.8 fL Low 7.4 - 10.4 fL [employer] Phone: Platelets (Bld) [#/Vol] 265 10*3/uL 140 - 440 10*3/uL [employer] Work Phone: RBC (Bld) [#/Vol] 4.51 10*6/uL 3.80 - 5.2 0 10*6/uL [facility] Work Phone: WBC (Bld) [#/Vol] 10.3 10*3/uL 3.6 - 10.7 10*3/uL [facility] Work Phone: Test Performed by [employer], [address] [place] [address] [facility] Work Phone: Hemogramon 07-22-2020 Erythrocyte distribution width (RBC) [Ratio] 16.7 % High 11.5-14.5 [employer] Comment on above: Performed By: #### P HOS3, BMP3, MG3, HEMOG #### [employer] [address] [place] [phone] Hematocrit (Bld) [Volume fraction] 32.0 % Low 35.0-47.0 [facility] Comment on above: Performed By: #### P HOS3, BMP3, MG3, HEMOG #### [place] [address] [place], [place] Hemoglobin (Bld) [Mass/Vol] 10.1 g/dL Low 11.7-16.0 [facility] Comment on above: Performed By: #### P HOS3, BMP3, MG3, HEMOG #### [place] [address] [place], [place] MCH (RBC) [Entitic mass] 22.3 pg Low 26.0-34.0 [facility] Comment on above: Performed By: #### P HOS3, BMP3, MG3, HEMOG #### [place] [address] [place], [place] MCHC 31.4 % Low 32.0-36.0 [facility] Comment on above: Performed By: #### P HOS3, BMP3, MG3, HEMOG #### [place] [address] [place], [place] MCV (RBC) [Entitic vol] 71.0 fL Low 79.0-98.0 [facility] Comment on above: Performed By: #### P HOS3, BMP3, MG3, HEMOG #### [place] [address] [place], [place] Platelet mean volume (Bld) [Entitic vol] 6.8 fL Low 7.4-10.4 [facility] Comment on above: Performed By: #### P HOS3, BMP3, MG3, HEMOG #### [place] [address] [place], [place] Platelets (Bld) [#/Vol] 265 10*3/uL Normal 140-440 [facility] Comment on above: Performed By: #### P HOS3, BMP3, MG3, HEMOG #### [address] RBC (Bld) [#/Vol] 4.51 10*6/uL Normal 3.80-5.20 [facility] Comment on above: Performed By: #### P HOS3, BMP3, MG3, HEMOG #### [address] [address] WBC (Bld) [#/Vol] 10.3 10*3/uL Normal 3.6-10.7 [facility] Comment on above: Performed By: #### P HOS3, BMP3, MG3, HEMOG #### [address] [address] Magnesiumon 07-22-2020 Magnesium [Mass/Vol] 1.8 mg/dL Normal 1.6-2.3 [facility] Comment on above: Performed By: #### P HOS3, BMP3, MG3, HEMOG ####[address] [address] Magnesium [Mass/Vol] 1.8 mg/dL 1.6 - 2 .3 mg/dL [facility] Work Phone: Otheron 07-22-2020 Test Performed by [id number] [place] [address] Work Phone: Phosphoruson 07-22-2020 Phosphate [Mass/Vol] 3.3 mg/dL Normal 2.5-4.5 [facility] Comment on above: Performed By: #### P HOS3, BMP3, MG3, HEMOG #### [address] [address] Phosphate [Mass/Vol] 3.3 mg/dL 2.5 - 4 .5 mg/dL [facility] Work Phone: Bacteria Ur Culton 1 Bacteria identified Cx Nom (U) CULTURE, URINE: No growth (<1,000 CFU/ml) Normal [facility] Comment on above: Performed By: #### 6 30-4 #### [facility] CLIA [id number] [address] [place] [address] Basic Metabolic Panelon 04- Calcium [Mass/Vol] 8.6 mg/dL Normal 8.4-10.4 [facility] Comment on above: Performed By: #### Q WAL, HEMDF, PT, LACT3, BMP3 #### [facility] [address], [place] Glucose [Mass/Vol] 157 mg/dL High 70-100 [facility] Comment on above: Performed By: #### Q WAL, HEMDF, PT, LACT3, BMP3 #### [facility] [address], [place] Urea nitrogen [Mass/Vol] 10 mg/dL Normal 7-20 [facility] Comment on above: Performed By: #### Q WAL, HEMDF, PT, LACT3, BMP3 #### [place] [address] [place], [place] Anion gap [Moles/Vol] 7 mmol/L Normal 3-13 [facility] Comment on above: Performed By: #### Q WAL, HEMDF, PT, LACT3, BMP3 #### [place] [address] [place], [place] CO2 [Moles/Vol] 24 mmol/L Normal 22-30 [facility] Comment on above: Performed By: #### Q WAL, HEMDF, PT, LACT3, BMP3 #### [place] [address] [place], [place] Creatinine [Mass/Vol] 0.63 mg/dL Normal 0.52-1.25 [facility] Comment on above: Performed By: #### Q WAL, HEMDF, PT, LACT3, BMP3 #### [place] [address] [place], [place] eGFR OTHER > 90.0 Normal >60 [facility] Comment on above: Result Comment: KDIG O guidelines provide the following GFR categories: Stage GFR(ml/min/1.73 m2) Terms G1 >=90 Normal or high G2 60-89 Mildly decreased* G3a 45-59 Mildly to moderately decreased G3b 30-44 Moderately to severely decreased G4 15-29 Severely decreased G5 <15 Kidney failure *Relative to young adult level. In the absence of evidence of kidney damage, neither GFR category G1 nor G2 fulfill the criteria for CKD. The CKD-EPI equation is validated in individuals 18 years of age and older. Currently the best equation for estimating glomerular filtration rate (GFR) from serum creatinine in children is the Bedside Andujar equation. It is less accurate in patients with extremes of muscle mass, restriction of dietary protein, ingestion of creatine, extra-renal metabolism of creatinine, or treatment with medications that affect renal tubular creatinine secretion. Performed By: #### Q WAL, HEMDF, PT, LACT3, BMP3 #### [place] [place] [address] GFR/1.73 sq M.predicted among blacks MDRD (S/P/Bld) [Vol rate/Area] mL/min/{1.73_m2} Normal >60 [facility] Comment on above: Performed By: #### Q WAL, HEMDF, PT, LACT3, BMP3 #### [place] [place] [address] Chloride [Moles/Vol] 105 mmol/L Normal 98-107 [facility] Comment on above: Performed By: #### Q WAL, HEMDF, PT, LACT3, BMP3 #### [address] [place] [place] [address] Potassium [Moles/Vol] 4.0 mmol/L Normal 3.5-5.1 [facility] Comment on above: Performed By: #### Q WAL, HEMDF, PT, LACT3, BMP3 #### [place] [place] [address] Sodium [Moles/Vol] 137 mmol/L Normal 135-145 [facility] Comment on above: Performed By: #### Q WAL, HEMDF, PT, LACT3, BMP3 #### [place] [place] [address] Anion gap [Moles/Vol] 7 mmol/L 3 - 13 mmol/L [facility] Work Phone: Calcium [Mass/Vol] 8.6 mg/dL 8.4 - 10. 4 mg/dL [facility] Work Phone: Chloride [Moles/Vol] 105 mmol/L 98 - 10 7 mmol/L [facility] Work Phone: CO2 [Moles/Vol] 24 mmol/L 22 - 30 mmol/L [facility] Work Phone: Creatinine [Mass/Vol] 0.63 mg/dL 0.52 - 1.25 mg/dL [facility] Work Phone: EGFR IF NonAfrican [place] >90.0 >60 mL/min [facility] Work Phone: Comment on above: KDIGO guidelines pro vide the following GFR categories: Stage GFR(ml/min/1.73 m2) Terms G1 >=90 Normal or high G2 60-89 Mildly decreased* G3a 45-59 Mildly to moderately decreased G3b 30-44 Moderately to severely decreased G4 15-29 Severely decreased G5 <15 Kidney failure *Relative to young adult level. In the absence of evidence of kidney damage, neither GFR category G1 nor G2 fulfill the criteria for CKD. The CKD-EPI equation is validated in individuals 18 years of age and older. Currently the best equation for estimating glomerular filtration rate (GFR) from serum creatinine in children is the Bedside Andujar equation. It is less accurate in patients with extremes of muscle mass, restriction of dietary protein, ingestion of creatine, extra-renal metabolism of creatinine, or treatment with medications that affect renal tubular creatinine secretion. GFR/1.73 sq M predicted among blacks MDRD (S/P/Bld) [Vol rate/Area] mL/min/{1.73_m2} >60 mL/min [facility] Work Phone: Glucose [Mass/Vol] 157 mg/dL High 70 - 100 mg/dL [facility] Work Phone: Interpretation and review of laboratory results Abnormal [facility] Work Phone: Potassium [Moles/Vol] 4.0 mmol/L 3.5 - 5.1 mmol/L [facility] Work Phone: Sodium [Moles/Vol] 137 mmol/L 135 - 145 mmol/L [facility] Work Phone: Urea nitrogen [Mass/Vol] 10 mg/dL 7 - 20 mg/dL [facility] Work Phone: Test Performed by [employer], [address] [place] [address] [facility] Work Phone: CBC W Auto Diff Bldon 2020 Basophils (Bld) [#/Vol] 0.03 10*3/uL Normal <0.11 [facility] Comment on above: Order Comment: Speci men Type: BLOOD SPECIMEN Performed By: #### 5 7021-8 #### [facility] CLIA [id number] [address] [facility] [place] [address] [place] Basophils/100 WBC (Bld) 0.4 % Normal [facility] Comment on above: Order Comment: Speci men Type: BLOOD SPECIMEN Performed By: #### 5 7021-8 #### [facility] CLIA [id number] [address] [place] [address] [facility] Differential cell count method Nom (Bld) Auto Normal [facility] Comment on above: Order Comment: Speci men Type: BLOOD SPECIMEN Performed By: #### 5 7021-8 #### [facility] CLIA [id number] [address] [facility] [place] [address] [place] Eosinophils (Bld) [#/Vol] 0.03 10*3/uL Normal <0.46 [facility] Comment on above: Order Comment: Speci men Type: BLOOD SPECIMEN Performed By: #### 5 7021-8 #### [facility] CLIA [id number] [address] [facility] [place] [address] [place] Eosinophils/100 WBC (Bld) 0.4 % Normal [facility] Comment on above: Order Comment: Speci men Type: BLOOD SPECIMEN Performed By: #### 5 7021-8 #### [facility] CLIA [id number] [address] [facility] [place] [address] [place] Erythrocyte distribution width (RBC) [Ratio] 16.4 % High 11.5-15.0 [facility] Comment on above: Order Comment: Speci men Type: BLOOD SPECIMEN Performed By: #### 5 7021-8 #### [facility] CLIA [id number] [address] [facility] [place] [address] [facility] [place] Hematocrit (Bld) [Volume fraction] 33.7 % Low 36.0-46.0 [facility] Comment on above: Order Comment: Speci men Type: BLOOD SPECIMEN Performed By: #### 5 7021-8 #### [facility] CLIA [id number] [address] [place] [address] [place] Hemoglobin (Bld) [Mass/Vol] 10.5 g/dL Low 11.5-15.5 [facility] Comment on above: Order Comment: Speci men Type: BLOOD SPECIMEN Performed By: #### 5 7021-8 #### [facility] CLIA [id number] [address] [place] [address] [place] Lymphocytes (Bld) [#/Vol] 1.82 10*3/uL Normal 1.00-4.00 [facility] Comment on above: Order Comment: Speci men Type: BLOOD SPECIMEN Performed By: #### 5 7021-8 #### [facility] CLIA [id number] [address] [place] [address] [place] Lymphocytes/100 WBC (Bld) 26.6 % Normal [facility] Comment on above: Order Comment: Speci men Type: BLOOD SPECIMEN Performed By: #### 5 7021-8 #### [facility] CLIA [id number] [address] [place] [address] [place] MCH (RBC) [Entitic mass] 22.5 pg Low 26.0-34.0 [facility] Comment on above: Order Comment: Speci men Type: BLOOD SPECIMEN Performed By: #### 5 7021-8 #### [facility] CLIA [id number] [address] [place] [address] [place] MCHC (RBC) [Mass/Vol] 31.2 g/dL Normal 30.5-36.0 [facility] Comment on above: Order Comment: Speci men Type: BLOOD SPECIMEN Performed By: #### 5 7021-8 #### [facility] CLIA [id number] [address] [place] [address] [facility] [place] MCV (RBC) [Entitic vol] 72.2 fL Low 80.0-100.0 [facility] Comment on above: Order Comment: Speci men Type: BLOOD SPECIMEN Performed By: #### 5 7021-8 #### [facility] CLIA [id number] [address] [place] [address] [facility] [place] Monocytes (Bld) [#/Vol] 0.52 10*3/uL Normal <0.87 [facility] Comment on above: Order Comment: Speci men Type: BLOOD SPECIMEN Performed By: #### 5 7021-8 #### [facility] CLIA [id number] [address] [place], [place] [id number] [place] [address] Monocytes/100 WBC (Bld) 7.6 % Normal [facility] Comment on above: Order Comment: Speci men Type: BLOOD SPECIMEN Performed By: #### 5 7021-8 #### [facility] CLIA [id number] [address] [place], [place] [address] [place] [address] Neutrophils (Bld) [#/Vol] 4.45 10*3/uL Normal 1.45-7.50 [facility] Comment on above: Order Comment: Speci men Type: BLOOD SPECIMEN Performed By: #### 5 7021-8 #### [facility] CLIA [id number] [address] [place] [address] [facility] Neutrophils/100 WBC (Bld) 65.0 % Normal [facility] Comment on above: Order Comment: Speci men Type: BLOOD SPECIMEN Performed By: #### 5 7021-8 #### [facility] [place] [facility] CLIA [id number] [address] [place] [address] [place] Platelet mean volume (Bld) [Entitic vol] 8.7 fL Low 9.0-12.7 [facility] Comment on above: Order Comment: Speci men Type: BLOOD SPECIMEN Performed By: #### 5 7021-8 #### [facility] [place] [facility] CLIA [id number] [address] [place] [address] [facility] Platelets (Bld) [#/Vol] 278 10*3/uL Normal 150-400 [facility] Comment on above: Order Comment: Speci men Type: BLOOD SPECIMEN Performed By: #### 5 7021-8 #### [facility] CLIA [id number] [address] [place] [address] [facility] RBC (Bld) [#/Vol] 4.67 10*6/uL Normal 3.90-5.20 [facility] Comment on above: Order Comment: Speci men Type: BLOOD SPECIMEN Performed By: #### 5 7021-8 #### [facility] CLIA [id number] [address] [place] [address] [facility] WBC (Bld) [#/Vol] 6.85 10*3/uL Normal 3.70-11.00 [facility] Comment on above: Order Comment: Speci men Type: BLOOD SPECIMEN Performed By: #### 5 7021-8 #### [facility] CLIA [id number] [address] [place] [address] [facility] [address] ABD/PEL WO IVCONon 2020 CT ABD/PEL WO IVCON * * *Final Report* * * DATE OF EXAM: Jul 21 2020 12:29AM [facility] 0531 - CT ABD/PEL WO IVCON / PROCEDURE REASON: Flank pain, stone disease suspected * * * * Physician Interpretation * * * * EXAMINATION: CT ABDOMEN AND PELVIS WITHOUT IV CONTRAST CLINICAL HISTORY: Right flank pain. TECHNIQUE: Non-IV contrast imaging of the abdomen and pelvis was performed using standard technique, scanning from just above the dome of the diaphragm to the symphysis pubis. Unenhanced imaging is limited for the evaluation of some intra-abdominal and pelvic pathology. MQ: CTAPWO_3 Contrast: IV: None : ml of CT Radiation dose: Integrated Dose-length product (DLP) for this visit = 1020.43 mGy*cm. CT Dose Reduction Employed: Automated exposure control (AEC) COMPARISON: None. RESULT: Abdomen / Pelvis: Liver: Unremarkable. Biliary: Gallbladder is not visualized. Spleen: No splenomegaly. Pancreas: Unremarkable. Adrenals: No mass. Kidneys: No calculus, hydronephrosis or finding to suggest a cyst or mass in the unenhanced kidney. GI Tract: Status post gastric bypass. There is swirling of the central mesentery with associated edema. Multiple loops of jejunum inclusive of the jejunojejunostomy are within the right lower quadrant. There is no gross evidence of bowel obstruction at this time. Lymph Nodes: No lymphadenopathy. Mesentery/peritoneum: No ascites. Retroperitoneum: No mass. Pelvis: No mass or ascites. Bones/Soft Tissues: Status post left hip arthroplasty. Lower thorax: Clear. Beveller Operator (topogram) images: No additional findings. IMPRESSION: Status post gastric bypass with internal hernia. No hydronephrosis or nephrolithiasis. Findings discussed with Dr. Borrero emergency room on 07/21/2020 at 1:28 AM. Tap Grinder: GRANT Transcribe Date/Time: Jul 21 2020 1:17A Dictated by : ABDULLAHI POE MD This examination was interpreted and the report reviewed and electronically signed by: ABDULLAHI POE MD on Jul 21 2020 1:28AM EST [id number] Normal [facility] Comp Metab 2000 Pnl SerPlon 07-21-2020 Albumin [Mass/Vol] 4.5 g/dL Normal 3.9-4.9 [facility] Comment on above: Order Comment: Speci men Type: BLOOD SPECIMEN Performed By: #### 2 4323-8, 3040-3 #### [facility] CLIA [id number] [address] [place] [address] [facility] ALP [Catalytic activity/Vol] 109 U/L Normal 34-123 [facility] Comment on above: Order Comment: Speci men Type: BLOOD SPECIMEN Performed By: #### 2 4323-8, 3040-3 #### [facility] CLIA [id number] [address] [place] [address] [place] ALT With P-5'-P [Catalytic activity/Vol] 18 U/L Normal 7-38 [facility] Comment on above: Order Comment: Speci men Type: BLOOD SPECIMEN Performed By: #### 2 4323-8, 0-3 #### [facility] [place] [facility] CLIA [id number] [address] [place] [address] [place] Anion gap [Moles/Vol] 9 mmol/L Normal 9-18 [facility] Comment on above: Order Comment: Speci men Type: BLOOD SPECIMEN Performed By: #### 2 4323-8, 0-3 #### [facility] [place] [facility] CLIA [id number] [address] [place] [address] [place] AST With P-5'-P [Catalytic activity/Vol] 24 U/L Normal 13-35 [facility] Comment on above: Order Comment: Speci men Type: BLOOD SPECIMEN Performed By: #### 2 4323-8, 0-3 #### [facility] [place] [facility] CLIA [id number] [address] [place] [address] [place] Bilirubin [Mass/Vol] 0.3 mg/dL Normal 0.2-1.3 [facility] Comment on above: Order Comment: Speci men Type: BLOOD SPECIMEN Performed By: #### 2 4323-8, 0-3 #### [facility] [place] [facility] CLIA [id number] [address] [place] [address] [place] Calcium [Mass/Vol] 8.6 mg/dL Normal 8.5-10.2 [facility] Comment on above: Order Comment: Speci men Type: BLOOD SPECIMEN Performed By: #### 2 4323-8, 0-3 #### [facility] [place] [facility] CLIA [id number] [address] [place] [address] [place] Chloride [Moles/Vol] 104 mmol/L Normal 97-105 [facility] Comment on above: Order Comment: Speci men Type: BLOOD SPECIMEN Performed By: #### 2 4323-8, 3040-3 #### [facility] [place] [facility] CLIA [id number] [address] [place] [address] [place] CO2 [Moles/Vol] 25 mmol/L Normal 22-30 [facility] Comment on above: Order Comment: Speci men Type: BLOOD SPECIMEN Performed By: #### 2 4323-8, 3039-3 #### [facility] [place] [facility] CLIA [id number] [address] [place] [address] [place] Creatinine [Mass/Vol] 0.79 mg/dL Normal 0.58-0.96 [facility] Comment on above: Order Comment: Speci men Type: BLOOD SPECIMEN Performed By: #### 2 4323-8, 3 #### [facility] [place] [facility] CLIA [id number] [address] [place] [address] [place] GFR/1.73 sq M predicted among blacks MDRD (S/P/Bld) [Vol rate/Area] mL/min/{1.73_m2} Normal [facility] Comment on above: Order Comment: Speci men Type: BLOOD SPECIMEN Performed By: #### 2 4323-8, 3 #### [facility] [place] [facility] CLIA [id number] [address] [place] [address] [place] GFR/1.73 sq M predicted among non-blacks MDRD (S/P/Bld) [Vol rate/Area] mL/min/{1.73_m2} Normal [facility] Comment on above: Order Comment: Speci men Type: BLOOD SPECIMEN Result Comment: eGFR (Estimated GFR) Units of measure: mL/min/1.73 meters squared eGFR is derived from the reexpressed MDRD Study equation using the following parameters: serum creatinine, age, gender and race. The creatinine assay has been calibrated to be traceable to IDMS. An eGFR <60 mL/min/1.73m2 for >3 months is consistent with chronic kidney disease. Refer to KDOQI guidelines for clinical interpretation. In patients with unstable renal function, e.g. those with acute kidney injury, the eGFR may not accurately reflect actual GFR. Performed By: #### 2 4323-8, 3039-3 #### [facility] [place] [facility] CLIA [id number] [address] [place] [address] [place] Glucose [Mass/Vol] 130 mg/dL High 74-99 [facility] Comment on above: Order Comment: Speci men Type: BLOOD SPECIMEN Result Comment: The [place] Diabetes Association (ADA) provides guidance for cutoff values for fasting glucose and random glucose. The ADA defines fasting as no caloric intake for at least 8 hours. Fasting plasma glucose results between 100 to 125 mg/dL indicate increased risk for diabetes (prediabetes). Fasting plasma glucose results greater than or equal to 126 mg/dL meet the criteria for diagnosis of diabetes. In the absence of unequivocal hyperglycemia, results should be confirmed by repeat testing. In a patient with classic symptoms of hyperglycemia or hyperglycemic crisis, random plasma glucose results greater than or equal to 200 mg/dL meet the criteria for diagnosis of diabetes. Reference: Standards of Medical Care in Diabetes 2016, [place] [employer] Association. Diabetes Care. 2016.39(Suppl 1). Performed By: #### 2 4323-8, 0-3 #### [facility] [place] [facility] CLIA [id number] [address] [place] [address] [place] Potassium [Moles/Vol] 3.7 mmol/L Normal 3.7-5.1 [facility] Comment on above: Order Comment: Speci men Type: BLOOD SPECIMEN Performed By: #### 2 4323-8, 0-3 #### [facility] [place] [facility] CLIA [id number] [address] [place] [address] [place] Protein [Mass/Vol] 7.1 g/dL Normal 6.3-8.0 [facility] Comment on above: Order Comment: Speci men Type: BLOOD SPECIMEN Performed By: #### 2 4323-8, 0-3 #### [facility] [place] [facility] CLIA [id number] [address] [place] [address] [place] Sodium [Moles/Vol] 138 mmol/L Normal 136-144 [facility] Comment on above: Order Comment: Speci men Type: BLOOD SPECIMEN Performed By: #### 2 4323-8, 0-3 #### [facility] [place] [facility] CLIA [id number] [address] [place] [address] [place] Urea nitrogen [Mass/Vol] 12 mg/dL Normal 7-21 [facility] Comment on above: Order Comment: Speci men Type: BLOOD SPECIMEN Performed By: #### 2 4323-8, 3040-3 #### [facility] CLIA [id number] [address] [place] [address] [place] ED Provider Noteon ED Provider Note -- Attestation signed by Efraín Venegas MD at 07/21/2020 3:11 PM Emergency Medicine Attending Please see previously documented note. Efraín Venegas MD Emergency Department Encounter [facility] SURGERY Patient: Александр Ambriz : 1970 Date of Evaluation: 07/21/2020 ED Provider: SAMANTHA Blanchard EDcare was supervised by Dr. Venegas who independently examined and evaluated the patient. Please see their attestation note for further details. Chief Complaint Chief Complaint Patient presents with ? Abdominal Pain ? Back Pain PILOT STATION (Location/Symptom, Timing/Onset, Context/Setting, Quality, Duration, Modifying Factors, Severity) Note limiting factors. Александр Ambriz is a 49 y.o. female who presents to the emergency department complaining of abdominal pain that radiates to her back that started approximately 6 PM last night. Patient states that she has a history of a Loreta-en-Y gastric bypass surgery in 2011, went to the emergency department last night, and they found a hernia. Patient states that the pain is making her nauseous, she has vomited. Patient denies any fevers, chills, chest pain, shortness of breath, lightheadedness, blood in stool, dysuria. ROS: Review of Systems 14 systems reviewed and otherwise acutely negative except as in the PILOT STATION. Past History Past Medical History: Diagnosis Date ? Activity intolerance ? Chronic back pain ? Fatigue ? GERD (gastroesophageal reflux disease) ? Hyperlipidemia ? Intestinal malabsorption following gastrectomy ? Knee pain ? SOB (shortness of breath) Past Surgical History: Procedure Laterality Date ? ABDOMINAL HERNIA REPAIR 07/21/2020 ? ANKLE SURGERY 1986 ? JOINT REPLACEMENT 03/2014 left hip replacement ? LORETA-EN-Y GASTRIC BYPASS 07/02/11 DR. ROJAS Social History Socioeconomic History ? Marital status: Spouse name: None ? Number of children: None ? Years of education: None ? Highest education level: None Occupational History ? None Social Needs ? Financial resource strain: None ? Food insecurity Worry: None Inability: None ? Transportation needs Medical: None Non-medical: None Tobacco Use ? Smoking status: Never Smoker ? Smokeless tobacco: Never Used Substance and Sexual Activity ? Alcohol use: Yes Comment: socially ? Drug use: Never ? Sexual activity: None Lifestyle ? Physical activity Days per week: None Minutes per session: None ? Stress: None Relationships ? Social connections Talks on phone: None Gets together: None Attends rastafari service: None Active member of club or organization: None Attends meetings of clubs or organizations: None Relationship status: None ? Intimate partner violence Fear of current or ex partner: None Emotionally abused: None Physically abused: None Forced sexual activity: None Other Topics Concern ? None Social History Narrative ? None Medications/Allergies Current Discharge Medication List CONTINUE these medications which have NOT CHANGED Details Probiotic Product (PROBIOTIC DAILY) CAPS Take 1 capsule by mouth daily acetaminophen (TYLENOL) 500 MG tablet Take 500 mg by mouth every 6 hours as needed for Pain Allergies Allergen Reactions ? Codeine Other (See Comments) WEIRD DREAMS Physical Exam ED Triage Vitals [07/21/20 0612] BP Temp Temp Source Pulse Resp SpO2 Height Weight 134/60 98.3 ?F (36.8 ?C) Oral 52 18 98 % 5' 7 (1.702 m) 260 lb (117.9 kg) Physical Exam Constitutional: Appearance: She is well-developed. HENT: Head: Normocephalic and atraumatic. Mouth/Throat: Mouth: Mucous membranes are moist. Eyes: Extraocular Movements: Extraocular movements intact. Pupils: Pupils are equal, round, and reactive to light. Cardiovascular: Rate and Rhythm: Normal rate and regular rhythm. Pulmonary: Effort: Pulmonary effort is normal. No respiratory distress. Breath sounds: No stridor. No wheezing, rhonchi or rales. Abdominal: General: Abdomen is flat. There is no distension. Palpations: Abdomen is soft. Tenderness: There is generalized abdominal tenderness. There is guarding. There is no rebound. Negative signs include Kumar's sign, Rovsing's sign and McBurney's sign. Musculoskeletal: Normal range of motion. Skin: General: Skin is warm. Capillary Refill: Capillary refill takes less than 2 seconds. Neurological: General: No focal deficit present. Mental Status: She is alert and oriented to person, place, and time. Sensory: No sensory deficit. Motor: No weakness. SCREENINGS Diagnostics Labs: Results for orders placed or performed during the hospital encounter of 07/21/20 Basic Metabolic Panel Result Value Ref Range Sodium 137 135 - 145 mmol/L Potassium 4.0 (more content not included)... Normal [facility] ED Provider Note Emergency Medicine Attending Note Assumed care at 7 am I performed a history and physical examination on this patient and discussed the management plans with the medical office professional instructor. History 49 year old female presents complaining of abdominal pain. Patient is status post bariatric surgery. Pain began at 11 PM last night. Taken to an outside hospital, discovered to have a bowel obstruction and transferred here for surgical intervention. Received analgesics prior to my exam Exam Alert oriented x 3, mildly tender distended abdomen Medical Decision Making / ED Course Imaging reviewed with the surgical service. Patient agrees to operative intervention. present the entire time Impression Postoperative bowel obstruction Plan To operating room then hospitalization (Please note that portions of this note may have been completed with a voice recognition program. Efforts were made to edit the dictations but occasionally words are mis-transcribed.) MD Efraín Rodas MD 07/21/20 1520 Normal [facility] HCG Preg Ur Qlon 07-21-2020 HCG ( test) Ql (U) Negative Normal Negative [facility] Comment on above: Order Comment: Speci men Type: URINE SPECIMEN Result Comment: This test is intended to aid in the early detection of . Very dilute urine samples, as indicated by a low specific gravity, may not contain service support representative levels of hCG. This test detects intact hCG only. This test does not reliably detect hCG degradation products, including free-beta subunit and beta-core fragment. Therefore, this test may show reduced reactivity in urine after 8 weeks gestation. A number of conditions other than , including trophoblastic disease and certain non-trophoblastic neoplasms cause elevated levels of hCG. As with any assay employing mouse antibodies, the possibility exists for interference by human anti-mouse antibodies (HAMA) in the specimen. The test provides a presumptive diagnosis for . Performed By: #### 2 106-3 #### [facility] CLIA [id number] [address] [place] [address] [place] HCG Qualitative, Serumon hCG Qual Negative m[IU]/mL [employer] Phone: Comment on above: Reference Range: NEG ATIVE Effective 06/30/2019, the reference interval for the qualitative test has been updated. This test detects hCG at concentrations of 10 mIU/L or greater in serum. Hemogram (CBC) w/Auto Diffon 07-21-2020 Absolute Baso # 0.0 10*3/uL 0.0 - 0.2 10*3/uL [employer] Work Phone: Absolute Neut # 5.9 10*3/uL 1.8 - 7.0 10*3/uL [employer] Work Phone: Basophils/100 WBC (Bld) 0.4 % 0.0 - 2.0 % [employer] Work Phone: Eosinophils (Bld) [#/Vol] 0.0 10*3/uL 0.0 - 0.5 10*3/uL [employer] Work Phone: Eosinophils/100 WBC (Bld) 0.0 % Low 1.0 - 6.0 % [employer] Work Phone: Erythrocyte distribution width (RBC) [Ratio] 17.0 % High 11.5 - 14.5 % [employer] Work Phone: Granulocytes/100 WBC (Bld) 82.9 % High 40.0 - 80.0 % [facility] Work Phone: Hematocrit (Bld) [Volume fraction] 33.0 % Low 35.0 - 47.0 % [employer] Work Phone: Hemoglobin (Bld) [Mass/Vol] 10.4 g/dL Low 11.7 - 16.0 g/dL [employer] Work Phone: Interpretation and review of laboratory results Abnormal [employer] Work Phone: Lymphocytes (Bld) [#/Vol] 1.0 10*3/uL 1.0 - 4.3 10*3/uL [employer] Work Phone: Lymphocytes/100 WBC (Bld) 13.9 % Low 20.0 - 40.0 % [employer] Work Phone: MCH (RBC) [Entitic mass] 22.4 pg Low 26.0 - 34.0 pg [employer] Work Phone: MCHC (RBC) [Mass/Vol] 31.6 % Low 32.0 - 36.0 % [employer] Work Phone: MCV (RBC) [Entitic vol] 70.9 fL Low 79.0 - 98.0 fL [employer] Work Phone: Monocytes (Bld) [#/Vol] 0.2 10*3/uL 0.0 - 0.8 10*3/uL [employer] Work Phone: Monocytes/100 WBC (Bld) 2.8 % 2.0 - 10.0 % [employer] Work Phone: Platelet mean volume (Bld) [Entitic vol] 6.7 fL Low 7.4 - 10.4 fL [employer] Work Phone: Platelets (Bld) [#/Vol] 256 10*3/uL 140 - 440 10*3/uL [employer] Work Phone: RBC (Bld) [#/Vol] 4.65 10*6/uL 3.80 - 5.2 0 10*6/uL [employer] Work Phone: WBC (Bld) [#/Vol] 7.1 10*3/uL 3.6 - 10.7 10*3/uL [facility] Work Phone: Test Performed by [facility], [address] [place] [id number] [place] [address] Work Phone: Hemogram w/ Autodiffon 07-21 Abs Baso Cnt 0.0 10*3/uL Normal 0.0-0.2 [facility] Comment on above: Performed By: #### Q WAL, HEMDF, PT, LACT3, BMP3 #### [address] Abs Neutrophile Cnt 5.9 10*3/uL Normal 1.8-7.0 [facility] Comment on above: Performed By: #### Q WAL, HEMDF, PT, LACT3, BMP3 #### [address] Basophils/100 WBC (Bld) 0.4 % Normal 0.0-2.0 [facility] Comment on above: Performed By: #### Q WAL, HEMDF, PT, LACT3, BMP3 #### [address] Eosinophils (Bld) [#/Vol] 0.0 10*3/uL Normal 0.0-0.5 [facility] Comment on above: Performed By: #### Q WAL, HEMDF, PT, LACT3, BMP3 #### [address] Eosinophils/100 WBC (Bld) 0.0 % Low 1.0-6.0 [facility] Comment on above: Performed By: #### Q WAL, HEMDF, PT, LACT3, BMP3 #### [address] Erythrocyte distribution width (RBC) [Ratio] 17.0 % High 11.5-14.5 [facility] Comment on above: Performed By: #### Q WAL, HEMDF, PT, LACT3, BMP3 #### [address] Granulocytes/100 WBC (Bld) 82.9 % High 40.0-80.0 [facility] Comment on above: Performed By: #### Q WAL, HEMDF, PT, LACT3, BMP3 #### [address] [place] [address] [place], [place] Hematocrit (Bld) [Volume fraction] 33.0 % Low 35.0-47.0 [facility] Comment on above: Performed By: #### Q WAL, HEMDF, PT, LACT3, BMP3 #### [address] [place] [address] [place], [place] Hemoglobin (Bld) [Mass/Vol] 10.4 g/dL Low 11.7-16.0 [facility] Comment on above: Performed By: #### Q WAL, HEMDF, PT, LACT3, BMP3 #### [address] [address] [place], [place] Lymphocytes (Bld) [#/Vol] 1.0 10*3/uL Normal 1.0-4.3 [facility] Comment on above: Performed By: #### Q WAL, HEMDF, PT, LACT3, BMP3 #### [address] [place] [address] [place], [place] Lymphocytes/100 WBC (Bld) 13.9 % Low 20.0-40.0 [facility] Comment on above: Performed By: #### Q WAL, HEMDF, PT, LACT3, BMP3 #### [place] [address] [place], [place] MCH (RBC) [Entitic mass] 22.4 pg Low 26.0-34.0 [facility] Comment on above: Performed By: #### Q WAL, HEMDF, PT, LACT3, BMP3 #### [address] [place] [address] [place], [place] MCHC 31.6 % Low 32.0-36.0 [facility] Comment on above: Performed By: #### Q WAL, HEMDF, PT, LACT3, BMP3 #### [address] [place] [address] [place], [place] MCV (RBC) [Entitic vol] 70.9 fL Low 79.0-98.0 [facility] Comment on above: Performed By: #### Q WAL, HEMDF, PT, LACT3, BMP3 #### [address] [place] [address] [place], [place] Monocytes (Bld) [#/Vol] 0.2 10*3/uL Normal 0.0-0.8 [facility] Comment on above: Performed By: #### Q WAL, HEMDF, PT, LACT3, BMP3 #### [place] [address] [place], [place] Monocytes/100 WBC (Bld) 2.8 % Normal 2.0-10.0 [facility] Comment on above: Performed By: #### Q WAL, HEMDF, PT, LACT3, BMP3 #### [place] [address] [place], [place] Platelet mean volume (Bld) [Entitic vol] 6.7 fL Low 7.4-10.4 [facility] Comment on above: Performed By: #### Q WAL, HEMDF, PT, LACT3, BMP3 #### [place] [address] [place], [place] Platelets (Bld) [#/Vol] 256 10*3/uL Normal 140-440 [facility] Comment on above: Performed By: #### Q WAL, HEMDF, PT, LACT3, BMP3 #### [place] [address] [place], [place] RBC (Bld) [#/Vol] 4.65 10*6/uL Normal 3.80-5.20 [facility] Comment on above: Performed By: #### Q WAL, HEMDF, PT, LACT3, BMP3 #### [address] WBC (Bld) [#/Vol] 7.1 10*3/uL Normal 3.6-10.7 [facility] Comment on above: Performed By: #### Q WAL, HEMDF, PT, LACT3, BMP3 #### [address] [address] Lactate Bld-sCncon 1 Lactate [Moles/Vol] 0.6 mmol/L Normal 0.5-2.2 [facility] Comment on above: Order Comment: Speci men Type: BLOOD SPECIMEN Performed By: #### 3 2693-4 #### [facility] CLIA [id number] [address] [place], [place] [id number] [place] [address] Lactic Acidon 07-21-2020 Lactate [Moles/Vol] 0.8 mmol/L Normal 0.7-2.0 [facility] [employer] Comment on above: Performed By: #### Q WAL, HEMDF, PT, LACT3, BMP3 #### [facility] [employer] [address] [address] Lactic Acid, Plasmaon 2020 Lactate [Moles/Vol] 0.8 mmol/L 0.7 - 2. 0 mmol/L [employer] Work Phone: Test Performed by [employer], [address] [place] [address] [employer] Work Phone: Lipase SerPl-cCncon 07-22-19 21 Lipase [Catalytic activity/Vol] 27 U/L Normal 16-61 [facility] Comment on above: Order Comment: Speci men Type: BLOOD SPECIMEN Performed By: #### 2 4323-8, 3040-3 #### [facility] CLIA [id number] [address] [place] [id number] [place] [address] [place] Otheron 07-21-2020 Test Performed by [employer], [address] [place] [address] [employer] Work Phone: Prothrombin Timeon 1 INR 1.0 Normal 0.9-1.1 [facility] Comment on above: Result Comment: Gomez mmended Anticoagulant Therapy: SEE BELOW ----- INR of 2.0 - 3.0 : - Prophylaxis of Venous Thrombosis (high-risk surgery) - Treatment of Venous Thrombosis - Treatment of Pulmonary Embolism (Includes tissue heart valves, Acute Myocardial Infarction to prevent systemic embolism, Valvular Heart Disease, and Atrial Fibrillation) ----- INR of 2.5 - 3.5 : - Mechanical Prosthetic Valves (high risk) - If oral anticoagulant therapy is used to prevent Myocardial Infarction Performed By: #### Q WAL, HEMDF, PT, LACT3, BMP3 #### [address] [id number] PT Coag (PPP) [Time] 10.9 s Normal 9.0-12.0 [facility] Comment on above: Result Comment: . Performed By: #### Q WAL, HEMDF, PT, LACT3, BMP3 #### [address] [address] Protime-INRon 07-21-2020 INR Coag (PPP) [Relative time] 1.0 {INR} [facility] Work Phone: Comment on above: Recommended Anticoag ulant Therapy: SEE BELOW ----- INR of 2.0 - 3.0 : - Prophylaxis of Venous Thrombosis (high-risk surgery) - Treatment of Venous Thrombosis - Treatment of Pulmonary Embolism (Includes tissue heart valves, Acute Myocardial Infarction to prevent systemic embolism, Valvular Heart Disease, and Atrial Fibrillation) ----- INR of 2.5 - 3.5 : - Mechanical Prosthetic Valves (high risk) - If oral anticoagulant therapy is used to prevent Myocardial Infarction PT Coag (PPP) [Time] 10.9 s 9.0 - 12.0 s [facility] Work Phone: Comment on above: . Test Performed by [facility] [employer] [facility], [address] [place] [address] [facility] Work Phone: SARS-CoV-2 RNA Resp Ql VONNIE+p robeon 07-21-2020 SARS-CoV-2 RNA Resp Ql VONNIE+probe COVID 19 RESULT: SARS-CoV-2 (Agent of COVID-19) Not Detected by PCR. This test has been authorized by FDA under an Emergency Use Authorization (EUA) [facility] Comment on above: Performed By: #### 9 4500-6 #### [facility] CLIA [id number] [address] [place] [id number] [place] [address] TS GELon 07-21-2020 TS GEL ABO Group: O Rh, Gel: POS Antibody Screen Gel: NEG Normal [facility] [employer] [facility] Comment on above: Performed By: #### T SGL ####[employer] [facility] TYPE AND SCREENon 07-21-2020 Sodium [Moles/Vol] Positive [employer] Work Phone: Sodium [Moles/Vol] O [employer] Work Phone: Sodium [Moles/Vol] Negative [employer] Work Phone: Urinalysis complete pnl Uron 07-21-2020 Bacteria LM.HPF (Urine sed) [#/Area] Rare Abnormal None Seen [facility] Comment on above: Order Comment: Speci men Type: URINE SPECIMEN Performed By: #### 2 4356-8 #### [facility] [place] [facility] CLIA [id number] [address] [place] [address] [facility] Bilirubin Ql (U) Negative Normal Negative [facility] Comment on above: Order Comment: Speci men Type: URINE SPECIMEN Performed By: #### 2 4356-8 #### [facility] [place] [facility] CLIA [id number] [address] [place] [address] [facility] Clarity (Unsp spec) Clear Normal Clear [facility] Comment on above: Order Comment: Speci men Type: URINE SPECIMEN Performed By: #### 2 4356-8 #### [facility] [place] [facility] CLIA [id number] [address] [place] [address] [facility] Color (U) Yellow Normal Yellow [facility] Comment on above: Order Comment: Speci men Type: URINE SPECIMEN Performed By: #### 2 4356-8 #### [facility] [place] [facility] CLIA [id number] [address] [place] [address] [facility] Epithelial cells LM.HPF (Urine sed) [#/Area] Few Normal [facility] Comment on above: Order Comment: Speci men Type: URINE SPECIMEN Performed By: #### 2 4356-8 #### [facility] [place] [facility] CLIA [id number] [address] [place] [address] [place] Glucose Test strip (U) [Mass/Vol] Negative Normal Negative [facility] Comment on above: Order Comment: Speci men Type: URINE SPECIMEN Performed By: #### 2 4356-8 #### [facility] [place] [facility] CLIA [id number] [address] [place] [address] [place] Hemoglobin Ql (U) Negative Normal Negative [facility] Comment on above: Order Comment: Speci men Type: URINE SPECIMEN Performed By: #### 2 4356-8 #### [facility] [place] [facility] CLIA [id number] [address] [facility] [place] [address] [place] Ketones Ql (U) Negative Normal Negative [facility] Comment on above: Order Comment: Speci men Type: URINE SPECIMEN Performed By: #### 2 4356-8 #### [facility] [place] [facility] CLIA [id number] [address] [facility] [place] [address] [place] Leukocyte esterase Test strip Ql (U) Trace Abnormal Negative [facility] Comment on above: Order Comment: Speci men Type: URINE SPECIMEN Performed By: #### 2 4356-8 #### [facility] [place] [facility] CLIA [id number] [address] [facility] [place] [address] [place] Nitrite Ql (U) Negative Normal Negative [facility] Comment on above: Order Comment: Speci men Type: URINE SPECIMEN Performed By: #### 2 4356-8 #### [facility] [place] [facility] CLIA [id number] [address] [place] [address] [place] pH (U) 7.0 [pH] Normal 5.0-8.0 [facility] Comment on above: Order Comment: Speci men Type: URINE SPECIMEN Performed By: #### 2 4356-8 #### [facility] [place] [facility] CLIA [id number] [address] [place] [address] [place] Protein (U) [Mass/Vol] Negative Normal Negative [facility] Comment on above: Order Comment: Speci men Type: URINE SPECIMEN Performed By: #### 2 4356-8 #### [facility] [place] [facility] CLIA [id number] [address] [place] [address] [facility] RBC LM.HPF (Urine sed) [#/Area] 0-3 /HPF Normal 0-3 /HPF [facility] Comment on above: Order Comment: Speci men Type: URINE SPECIMEN Performed By: #### 2 4356-8 #### [facility] [place] [facility] CLIA [id number] [address] [place] [address] [facility] Specific gravity (U) [Rel density] 1.025 Normal 1.005-1.030 [facility] Comment on above: Order Comment: Speci men Type: URINE SPECIMEN Performed By: #### 2 4356-8 #### [facility] [place] [facility] CLIA [id number] [address] [place] [address] [facility] Urobilinogen Test strip Ql (U) 0.2 EU/dL Normal 0.2-1.0 EU/dL [facility] Comment on above: Order Comment: Speci men Type: URINE SPECIMEN Performed By: #### 2 4356-8 #### [facility] [place] [facility] CLIA [id number] [address] [place] [id number] [facility] WBC LM.HPF (Urine sed) [#/Area] 0-5 /HPF Normal 0-5 /HPF [facility] Comment on above: Order Comment: Speci men Type: URINE SPECIMEN Performed By: #### 2 4356-8 #### [facility] [place] [facility] CLIA [id number] [address] [place] [address] [facility] [place] hCG Qual Pregon 07-21-2020 hCG Qual Preg Negative Normal [facility] Comment on above: Result Comment: Refe rence Range: NEGATIVE Effective 06/30/2019, the reference interval for the qualitative test has been updated. This test detects hCG at concentrations of 10 mIU/L or greater in serum. Performed By: #### Q WAL, HEMDF, PT, LACT3, BMP3 #### [employer] [address] [address] Vital Signs Date Time Vital Sign Value Performing Clinician Matt tuttle 11-20-2023 12:11-0400 Body mass index (BMI) [Ratio] 33.39 kg/m2 Anisha Slabaugh PA-C Work Phone: [facility] 11-20-2023 12:11-0400 Body temperature 97.5 [degF] Anisha Slabaugh PA-C Work Phone: [facility] 11-20-2023 12:11-0400 Body weight 96.7 kg Anisha Maruaugh PA-C Work Phone: [facility] 11-20-2023 12:11-0400 Diastolic blood pressure 72 mm[Hg] Anisha Slabaugh PA-C Work Phone: [facility] 11-20-2023 12:11-0400 Heart rate 71 /min Anisha Slabaugh PA-C Work Phone: [facility] 11-20-2023 12:11-0400 SaO2% (BldA) [Mass fraction] 97 % Anisha Maruaugh PA-C Work Phone: [facility] 11-20-2023 12:11-0400 Systolic blood pressure 107 mm[Hg] Anisha Slabaugh PA-C Work Phone: [facility] 03-29-2023 10:32-0500 Body height 168.9 cm Andrés Pozsgay DO Work Phone: [facility] [employer] 03-29-2023 10:32-0500 Body mass index (BMI) [Ratio] 33.45 kg/m2 Andrés Pozsgay DO Work Phone: [employer] 03-29-2023 10:32-0500 Body temperature 97.5 [degF] Andrés Pozsgay DO Work Phone: [employer] 03-29-2023 10:32-0500 Body weight 95.44 kg Andrés Pozsgay DO Work Phone: [employer] 03-29-2023 10:32-0500 Diastolic blood pressure 71 mm[Hg] Andrés Pozsgay DO Work Phone: [facility] [employer] 03-29-2023 10:32-0500 Heart rate 56 /min Andrés Pozsgay DO Work Phone: [facility] [employer] 03-29-2023 10:32-0500 Respiratory rate 18 /min Andrés Pozsgay DO Work Phone: [facility] [employer] 03-29-2023 10:32-0500 Systolic blood pressure 103 mm[Hg] Andrés Pozsgay DO Work Phone: [employer] 07-22-2020 14:01-0400 Pulse Oximetry 96 % [employer] Work Phone: 07-22-2020 08:48-0400 Body Temperature 98.2 [degF] [employer] Work Phone: 07-22-2020 08:48-0400 BP Diastolic 73 mm[Hg] [employer]fraín [email or web address] Work Phone: 07-22-2020 08:48-0400 BP Systolic 124 mm[Hg] [employer] Work Phone: 07-22-2020 08:48-0400 Pulse (Heart Rate) 69 /min [employer] Work Phone: 07-22-2020 08:48-0400 Respiratory Rate 18 /min [employer] [facility] Work Phone: 07-21-2020 06:12-0400 BMI (Body Mass Index) 40.72 kg/m2 [employer] [facility] Work Phone: 07-21-2020 06:12-0400 Body weight 117.94 kg [employer] Work Phone: 07-21-2020 06:12-0400 Height 170.2 cm [employer] [facility] Work Phone: Encounters Encounter Date Encounter Type Care Provider Facility Start: 11-20-2023 End: 11-20-2023 ambulatory SELF Facility:[facility] Start: 11-20-2023 End: 11-20-2023 Patient encounter procedure Anisha Lamb PA-C Work Phone: [facility] Comment on above: Muscle cramps (Prima ry Dx) Start: 03-29-2023 End: 03-29-2023 ambulatory ISAAC MINA [facility] Start: 03-29-2023 End: 03-29-2023 Office outpatient visit 25 minutes Andrés Bob MERINO Work Phone: [facility] Comment on above: Gastroesophageal ref lux disease, unspecified whether esophagitis present; Intestinal malabsorption following gastrectomy; Deficiency of multiple nutrient elements; Hyperlipidemia, unspecified hyperlipidemia type; Class 1 obesity due to excess calories with serious comorbidity and body mass index (BMI) of 33.0 to 33.9 in adult Start: 03-15-2023 Telephone encounter Andrés Fidelinashaina richa MERINO Work Phone: [facility] Comment on above: Vomiting (Vomiting, and abd pain) Start: 03-10-2023 End: 03-11-2023 Evaluation and management of inpatient ISAAC MINA Facility:[facility] Start: 08-02-2020 End: 08-02-2020 Subsequent hospital visit by physician Sim Dennison MD Work Phone: [facility] Start: 07-21-2020 End: 07-22-2020 Emergency department patient visit Efraín Venegas Work Phone: [facility] Comment on above: Internal hernia (Antionette harrison Dx); Mesenteric hernia; Generalized abdominal pain Procedures Date Procedure Procedure Detail Performing Clinician Start: 07-22-2020 Assay of magnesium Gayathri abeth A [employer] Work Phone: Start: 07-22-2020 Assay of phosphorus inorganic Kristine A [employer] Work Phone: Start: 07-22-2020 Basic metabolic pane l calcium total Kristine A [employer] Work Phone: Start: 07-22-2020 Blood count complete automated Kristine A [employer] Work Phone: Start: 07-21-2020 OPERATIVE REPORT 3m Sca nning Start: 07-21-2020 Assay of lactate Angella Phan Work Phone: Start: 07-21-2020 Basic metabolic pane l calcium total Virginia Phan Work Phone: Start: 07-21-2020 Blood count complete auto&auto difrntl wbc Virginia Phan Work Phone: Start: 07-21-2020 Blood typing serologic abo Virginia Phan Work Phone: Start: 07-21-2020 Gonadotropin chorion ic qualitative Virginia Phan Work Phone: Start: 07-21-2020 Prothrombin time Angella Phan Work Phone: Plan of Treatment Date Care Activity Detail Author Start: 2028 RSV Immunization age d 60 or older (1 - 1-dose 60+ series) RSV Immunization aged 60 or older (1 - 1-dose 60+ series) [facility] Start: 03-11-2026 Diabetes Screening Diabetes Screenin g [facility] Start: 12-19-2023 Influenza vaccination Influenza Vacc ine (#1) [facility] Start: 07-08-2023 DTaP/Tdap/Td vaccine (2 - Td) DTaP/Tdap/Td vaccine (2 - Td) [facility] Work Phone: Start: 07-08-2023 DTaP/Tdap/Td Vaccine s (2 - Td or Tdap) DTaP/Tdap/Td Vaccines (2 - Td or Tdap) [facility] Start: 07-08-2023 Urine microalbumin profile DTaP,Tdap,Td Vaccine (2 - Td or Tdap) [facility] Start: 03-29-2023 End: 03-29-2023 Patient encounter procedure 03/29/2023 10:30 AM EST Office Visit [facility] [address] [place] [id number] Andrés Rojas DO [address] [place] [address] [facility] Start: 12-18-2022 COVID-19 Vaccine ( season) COVID-19 Vaccine ( season) [facility] Start: 12-18-2022 Influenza vaccination Influenza Vacc ine (#1) [facility] Start: 08-02-2020 End: 08-02-2020 Office Visit 08/02/2020 Office Visit Bariatrics Sim Dennison MD [address] [facility] [address] [place] [address] [phone] [facility] Start: 2018 Screening for malign ant neoplasm of breast Breast cancer screen [facility] Work Phone: Start: 2018 Screening for malign ant neoplasm of colon Colon cancer screen colonoscopy [facility] Work Phone: Start: 2018 Shingles Vaccine (1 of 2) Shingles Vaccine (1 of 2) [facility] Work Phone: Start: 2018 Shingrix Vaccine (1 of 2) Shingrix Vaccine (1 of 2) [facility] Start: 2018 Zoster Vaccines (1 o f 2) Zoster Vaccines (1 of 2) [facility] Start: 2013 Lipid panel Lipid Screening [facility] Start: 2013 Screening for malign ant neoplasm of colon [facility] Start: 06-20-2010 Screening for malign ant neoplasm of breast Mammogram Screening [facility] Start: 2008 Diabetes screen Diabetes screen [facility] Work Phone: Start: 2008 Lipid panel Lipid screen [facility] Work Phone: Start: 2008 Screening for malign ant neoplasm of breast Mammogram [facility] Start: 1998 Screening for malign ant neoplasm of cervix [facility] Start: 1989 Screening for malign ant neoplasm of cervix [facility] Start: 08-07-1987 DTaP/Tdap/Td vaccine (1 - Tdap) DTaP/Tdap/Td vaccine (1 - Tdap) [facility] Work Phone: Start: 08-07-1987 Hepatitis B Vaccine (1 of 3 - 19+ 3-dose series) Hepatitis B Vaccine (1 of 3 - 19+ 3-dose series) [facility] Start: 1986 Anxiety Screening Anxiety Screening [facility] Start: 1986 Depression Screening Depression Scre ening [facility] Start: 1986 Diabetes mellitus screening Diabetes Screening [facility] Start: 1986 Hepatitis C screening Hepatitis C Sc reening [facility] Start: 1986 HIV screening HIV Screening [facility] Start: 1984 COVID-19 Vaccine (1) COVID-19 Vaccin e (1) [facility] Work Phone: Start: 08-07-1983 HIV screening HIV screen [facility] Work Phone: Start: 1980 Depression Screening Depression Scre ing [facility] Start: 1969 MMR Vaccines (1 of 1 - Standard series) MMR Vaccines (1 of 1 - Standard series) [facility] Start: 1968 Hepatitis B Vaccines (1 of 3 - 3-dose series) Hepatitis B Vaccines (1 of 3 - 3-dose series) [facility] Start: 1968 Hepatitis C screening Hepatitis C sc reen [facility] Work Phone: Start: 1968 HIV screening HIV Screening [facility] Start: 1968 Lipid panel Lipid Panel [facility] Start: 1968 Screening for malign ant neoplasm of colon [facility] Basic metabolic 2000 panel Basic Metabolic Panel Lab Routine Daily until discontinued starting 07/22/2020, 1 completed [facility] Work Phone: Comment on above: Daily until disconti nued starting 07/22/2020, 1 completed CBC CBC Lab Routine Daily until discontinued starting 07/22/2020, 1 completed [facility] Work Phone: Comment on above: Daily until disconti nued starting 07/22/2020, 1 completed End: 07-23-2020 Magnesium [Mass/Vol] Magnesium Lab Routine Daily for 2 Occurrences starting 07/22/2020 until 07/23/2020, 1 completed [facility] Work Phone: Comment on above: Daily for 2 Occurren chiquita starting 07/22/2020 until 07/23/2020, 1 completed Nebulizer therapy HHN Treatment Respiratory Care Routine Every 4hr while awake until discontinued starting 07/21/2020 [employer] Work Phone: Comment on above: Every 4hr while awak e until discontinued starting 07/21/2020 Oxygen therapy [[facility]] Initiate Oxygen Therapy Protocol Respiratory Care Routine Daily until discontinued starting 07/21/2020 [facility] Work Phone: Comment on above: Daily until disconti nued starting 07/21/2020 Phosphate [Mass/Vol] Phosphorus Lab Routine Daily until discontinued starting 07/22/2020, 1 completed [employer] Work Phone: Comment on above: Daily until disconti nued starting 07/22/2020, 1 completed Spirometry panel Incentive marleni metry Respiratory Care Routine Every 1hr while awake until discontinued starting 07/21/2020 [employer] Work Phone: Comment on above: Every 1hr while awak e until discontinued starting 07/21/2020 Immunizations Immunization Date Immunization Notes Care Provider [facility] 03-05-2020 influenza, injectabl e, quadrivalent, preservative free Efraínluciano Venegas [facility] Work Phone: 03-05-2020 influenza virus vaccine, unspecified formulation Andrés Bbo DO Work Phone: [facility] [employer] 02-12-2019 influenza virus vaccine, unspecified formulation [employer] [facility] Payers Date Payer Category Payer Unknown [id number] 2021 Unknown [id number] 2020 Unknown BCBS [place] - [place] P PO [id number] 2020-Present [address] [place] [address] [id number] 2015 Unknown [employer] [address] [id number] 2015-Present [phone] [address] [place] [address] [id number] Social History Date Type Detail Facility Start: 07-20-2020 End: 07-21-2020 Tobacco smoking status NHIS Never smoker [employer] Start: 07-20-2020 End: 07-21-2020 Tobacco use and exposure Never used [employer] Phone: Start: 07-21-2020 End: 03-10-2023 Alcohol intake Current drinker of alcohol (finding) [employer] Phone: Start: 07-21-2020 Alcohol Comment socially [employer] Phone: Start: 1970 Sex Assigned At Not on file [employer] Work Phone: Exposure to SARS-CoV -2 (event) Not sure [employer] Phone: Start: 03-30-2023 End: 11-20-2023 Gender identity Not on file [employer] Start: 03-30-2023 End: 11-20-2023 History of Social function [facility] [employer] National Score (1-100), lower number is lower risk 59 [facility] Start: 07-20-2020 Alcohol Comment 4 times a month [facility] Clinical Notes 07-21-2020 to 11-20-2023 Patient InstructionsSAnisha chau PA-C - 11/20/2023 12:33 PM Candy Rojas DO - 03/29/2023 10:30 AM Cleveland Marcelino MA - 03/29/2023 10:30 AM EST Note Date & Type Note Facility 11-20-2023 Instructions Anisha Lamb PA-C - 11/20/2023 12:38 PM EDT ASSESSMENT/PLAN: 1. Muscle cramps Bilateral lower leg cramps ongoing Getting worse and more frequent - CYCLOBENZAPRINE 10 MG TABLET- bedtime as needed - Advise PCP follow up Get thyroid, electrolytes, etc. checked - Continue daily vitamins - Increased hydration- electrolyte drinks - Massage - Heat -The patient verbalizes understanding and is in agreement with plan of care. Anisha Lamb PA-C documented in this encounter [facility] 11-20-2023 Note HNO ID: [id number] Author: ANISHA LAMB PA-C Service: ? Author Type: Physician [employer] Service Technician Type: Progress Notes Filed: 11/20/2023 14:28 Note Text: 11/20/2023 Patient presents with: Pain: Ankle pain started this morning, having cramps in leg, feet and thighs,. When she wakes up in middle of night if she gets up and steps down it goes away. Has been vitamin deficient before. Is taking suplaments. SUBJECTIVE: This is a 53 year old that is here today for recurring nightly leg cramps for months, maybe years and a long time. She complains of cramping in the bilateral lower legs that wakes her up at night for years. Cramping has been more frequent, basically every night for many months. She had cramping in the bilateral lower legs today that made her cry and didn't want to go away. They resolved with walking eventually today. She came here because I'm just tired of them. I don't know what to do. She has a PCP. She states labs and electrolytes were normal at my last visit. At night sometimes she can walk them out. Other times they don't seem to resolve and she has to take motrin and heating pads for them to eventually go away. She takes a daily vitamin. She stays hydrated. 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 She denies any leg swelling at all. No feet, ankle, hudson, or other leg swelling. No numbness, tingling, weakness, or loss of motor function. But, she states she has has some crawling or funny sensations in the lower legs. She has fallen twice in the past few weeks but denies legs giving out or weakness or loss of function. No other limp or body neurologic changes. Denies fever, chills, sweats, or fatigue. Patient denies wheezing, shortness of breath, increased WOB, or chest pain. No other URI symptoms. No other sick symptoms. Pain on scale of 0-10 with 0 being no pain and 10 being greatest pain: no pain currently Nothing makes the symptoms better. Nothing makes them worse. Self-treatment:. See HPI Barriers to learning: none. Reviewed meds, OTCs, herbals or supplements. Reviewed allergies, medications, social history, and past medical history. No past medical history on file. ALLERGIES [employer] MEDICATIONS Current Outpatient Medications Medication Sig ergocalciferol, vitamin D2, (VITAMIN D2 ORAL) Take by mouth. iron,carb/vit C/vit B12/folic (IRON 100 PLUS ORAL) Take by mouth. Magnesium 200 mg tab Take by mouth. Wzbqeufpaxutd-Wsxpffbl-Ffsfwp (MULTIVITAMIN 50 PLUS) tab Take 1 tablet by mouth once daily. Plexus vitamins acetaminophen (TYLENOL EXTRA STRENGTH ORAL) Take 500 mg by mouth as needed (PRN). cyclobenzaprine (FLEXERIL) 10 mg tablet Take 0.5-1 tablets by mouth at bedtime as needed. No current facility-administered medications for this visit. Medications and allergies reviewed by this provider. SOCIAL HISTORY Social History Tobacco Use Smoking status: Never Smokeless tobacco: Never Vaping Use Vaping Use: Never used Substance Use Topics Alcohol use: Yes Comment: 4 times a month Drug use: Never REVIEW OF SYSTEMS Review of Systems ROS: constitutional-neg, heent-neg, heart-neg, respiratory-neg, GI-neg, -neg, skin-neg, MS- bilateral leg cramps at night for months, endo-neg, heme-neg, lymph-neg, neuro-neg, psych-neg- All systems neg except as noted above in HPI. OBJECTIVE: BP 107/72 Pulse 71 Temp 36.4 ?C (97.5 ?F) Wt 96.7 kg (213 lb 3 oz) SpO2 97% BMI 33.39 kg/m? . Vital signs reviewed by this provider. Physical Exam Vitals reviewed. Constitutional: General: She is not in acute distress. Appearance: Normal appearance. She is well-developed and normal weight. She is not ill-appearing, toxic-appearing or diaphoretic. HENT: Head: Normocephalic and atraumatic. Cardiovascular: Pulses: Dorsalis pedis pulses are 2+ on the right side and 2+ on the left side. Musculoskeletal: Right knee: Normal. Left knee: Normal. Right lower leg: Normal. No swelling, deformity, lacerations, tenderness or bony tenderness. No edema. Left lower leg: Normal. No swelling, deformity, lacerations, tenderness or bony tenderness. No edema. Right ankle: Normal. Left ankle: Normal. Right foot: Normal. Left foot: Normal. Comments: No TTP of the bilateral lowers legs. No swelling or edema. Skin: General: Skin is warm. Capillary Refill: Capillary refill takes less than 2 seconds. Findings: No abrasion, abscess, acne, bruising, burn, ecchymosis, erythema, signs of injury, laceration, lesion, petechiae, rash or wound. Neurological: General: No focal deficit present. Mental Status: She is alert and oriented to person, place, and time. Sensory: Sensation is intact. Motor: No weakness. Psychiatric: Behavior: Behavior is cooperative. ASSESSMENT/PLAN: 1. Muscle cramps - ICD9: 729.82, ICD10: R25.2 Nightly bilateral lower leg cramps ongoing for many months Getting worse and more rayna (more content not included)... [facility] 11-20-2023 History of Presen t illness Narrative 11/20/2023 Patient presents with: Pain: Ankle pain started this morning, having cramps in leg, feet and thighs,. When she wakes up in middle of night if she gets up and steps down it goes away. Has been vitamin deficient before. Is taking suplaments. SUBJECTIVE: This is a 53 year old that is here today for recurring nightly leg cramps for months, maybe years and a long time. She complains of cramping in the bilateral lower legs that wakes her up at night for years. Cramping has been more frequent, basically every night for many months. She had cramping in the bilateral lower legs today that made her cry and didn't want to go away. They resolved with walking eventually today. She came here because I'm just tired of them. I don't know what to do. She has a PCP. She states labs and electrolytes were normal at my last visit. At night sometimes she can walk them out. Other times they don't seem to resolve and she has to take motrin and heating pads for them to eventually go away. She takes a daily vitamin. She stays hydrated. 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 She denies any leg swelling at all. No feet, ankle, hudson, or other leg swelling. No numbness, tingling, weakness, or loss of motor function. But, she states she has has some crawling or funny sensations in the lower legs. She has fallen twice in the past few weeks but denies legs giving out or weakness or loss of function. No other limp or body neurologic changes. Denies fever, chills, sweats, or fatigue. Patient denies wheezing, shortness of breath, increased WOB, or chest pain. No other URI symptoms. No other sick symptoms. Pain on scale of 0-10 with 0 being no pain and 10 being greatest pain: no pain currently Nothing makes the symptoms better. Nothing makes them worse. Self-treatment:. See HPI Barriers to learning: none. Reviewed meds, OTCs, herbals or supplements. Reviewed allergies, medications, social history, and past medical history. No past medical history on file. ALLERGIES Codeine MEDICATIONS Current Outpatient Medications Medication Sig ergocalciferol, vitamin D2, (VITAMIN D2 ORAL) Take by mouth. iron,carb/vit C/vit B12/folic (IRON 100 PLUS ORAL) Take by mouth. Magnesium 200 mg tab Take by mouth. Tsgovwzfloveb-Byimkyrx-Bjpkah (MULTIVITAMIN 50 PLUS) tab Take 1 tablet by mouth once daily. Plexus vitamins acetaminophen (TYLENOL EXTRA STRENGTH ORAL) Take 500 mg by mouth as needed (PRN). cyclobenzaprine (FLEXERIL) 10 mg tablet Take 0.5-1 tablets by mouth at bedtime as needed. No current facility-administered medications for this visit. Medications and allergies reviewed by this provider. SOCIAL HISTORY Social History Tobacco Use Smoking status: Never Smokeless tobacco: Never Vaping Use Vaping Use: Never used Substance Use Topics Alcohol use: Yes Comment: 4 times a month Drug use: Never REVIEW OF SYSTEMS Review of Systems ROS: constitutional-neg, heent-neg, heart-neg, respiratory-neg, GI-neg, -neg, skin-neg, MS- bilateral leg cramps at night for months, endo-neg, heme-neg, lymph-neg, neuro-neg, psych-neg- All systems neg except as noted above in HPI. OBJECTIVE: BP 107/72 Pulse 71 Temp 36.4 C (97.5 F) Wt 96.7 kg (213 lb 3 oz) SpO2 97% BMI 33.39 kg/m . Vital signs reviewed by this provider. Physical Exam Vitals reviewed. Constitutional: General: She is not in acute distress. Appearance: Normal appearance. She is well-developed and normal weight. She is not ill-appearing, toxic-appearing or diaphoretic. HENT: Head: Normocephalic and atraumatic. Cardiovascular: Pulses: Dorsalis pedis pulses are 2+ on the right side and 2+ on the left side. Musculoskeletal: Right knee: Normal. Left knee: Normal. Right lower leg: Normal. No swelling, deformity, lacerations, tenderness or bony tenderness. No edema. Left lower leg: Normal. No swelling, deformity, lacerations, tenderness or bony tenderness. No edema. Right ankle: Normal. Left ankle: Normal. Right foot: Normal. Left foot: Normal. Comments: No TTP of the bilateral lowers legs. No swelling or edema. Skin: General: Skin is warm. Capillary Refill: Capillary refill takes less than 2 seconds. Findings: No abrasion, abscess, acne, bruising, burn, ecchymosis, erythema, signs of injury, laceration, lesion, petechiae, rash or wound. Neurological: General: No focal deficit present. Mental Status: She is alert and oriented to person, place, and time. Sensory: Sensation is intact. Motor: No weakness. Psychiatric: Behavior: Behavior is cooperative. ASSESSMENT/PLAN: 1. Muscle cramps - ICD9: 729.82, ICD10: R25.2 Nightly bilateral lower leg cramps ongoing for many months Getting worse and more frequent- almost every night now - CYCLOBENZAPRINE 10 MG TABLET- bedtime as needed - Advise PCP follow up Get thyroid, electrolytes, etc. Checked. May need other neuro work up - Continue daily vitamins - Increased hydration- electrolyte drinks - Massage - Heat -The patient verbalizes understanding and is in agreement with plan of care. Anisha Lamb PA-C Medical Decision Making: Problems: Low: Acute, uncomplicated illness or injury Risk: Low: Low risk from testing/treatment Moderate: Drug management Medical Decision Making Level: 3 - Low I spent a total of 20 minutes on the date of the service which included preparing to see the patient, [id number] patient care, completing clinical documentation, performing a medically appropriate examination, counseling and educating the patient/family/caregiver, and ordering medications, tests, or procedures. documented in this encounter [facility] 03-29-2023 History of Presen t illness Narrative HPI, PHYSICAL EXAMINATION & PLAN Post-Op HPI: Patient here for Patient states she had a small bowel obstruction late February in [place], and was admitted. Patient states she was released on a liquid diet over the holidays. Patient states she has only had liquid diet with soups, cottage cheese and wheat toast with peanut butter, with no problems. LRYGB 07/02/2011 MP closure of Mcarthur's defect, reduction of internal hernia and Lysis of adhesions 07/21/20 TB Recent ER visit for abdominal pain Ct personally reviewed showed SBO No obvious location of transition point Patient back to normal - no pain, no post prandial issues. Review of Systems Constitutional: Negative for fatigue and fever. HENT: Negative for congestion. Respiratory: Negative for shortness of breath. Cardiovascular: Negative for chest pain and leg swelling. Gastrointestinal: Negative for abdominal distention, abdominal pain, constipation, diarrhea, nausea and vomiting. Skin: Negative for color change. Physical Examination: BP 103/71 Pulse 56 Temp 36.4 C (97.5 F) Resp 18 Ht 5' 6.5 (1.689 m) Wt 210 lb 6.4 oz (95.4 kg) BMI 33.45 kg/m General: This patient is awake, alert, and oriented, and is in no apparent distress. Cardiac: Regular rate and rhythm without evidence of murmur. Respiratory: Clear to auscultation bilaterally. Abdomen: Obese, soft, non-tender, non-distended without masses/ No evidence of abdominal hernia / Incisions consistent with previous surgeries. Head and Neck: Obese, normocephalic and atraumatic/soft and supple, no lymphadenopathy or obvious bruits. Extremities: No cyanosis, clubbing or edema/ No calf tenderness/No restrictions of movement, is ambulatory without assistance. Neurological: Intact x 4 extremities, no focal deficits notes. Skin: No rashes or lesions noted. Rectal: Deferred Assessment: was in er for SBO - No pain today, BM every other day, passing gas daily. PLAN: No orders of the defined types were placed in this encounter. Medications ordered during this encounter: Outpatient Encounter Medications as of 03/29/2023 Medication Sig Dispense Refill acetaminophen (Tylenol) 500 MG tablet Take 500 mg by mouth every 6 hours as needed. cholecalciferol (Vitamin D3) 25 MCG (1000 UT) tablet Take 1,000 Units by mouth in the morning. Digestive Enzymes (BIO PREBIOTIC SUPPLEMENT PO) Take by mouth daily. LUTEIN PO Take 1 tablet by mouth in the morning. MAGNESIUM PO Take by mouth daily. meclizine (Antivert) 12.5 MG tablet Take 12.5 mg by mouth 3 times daily as needed. omega-3 acid ethyl esters (Lovaza) 1 g capsule Take 1 g by mouth 2 times daily. ondansetron (Zofran) 8 MG tablet Take 8 mg by mouth every 12 hours as needed. Probiotic Product (Probiotic Daily) capsule Take 1 capsule by mouth daily. zinc 50 MG tablet Take 50 mg by mouth daily. No facility-administered encounter medications on file as of 03/29/2023. Visit Diagnoses: 1. Gastroesophageal reflux disease, unspecified whether esophagitis present 2. 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 Hyperlipidemia, unspecified hyperlipidemia type 5. Class 1 obesity due to excess calories with serious comorbidity and body mass index (BMI) of 33.0 to 33.9 in adult Current Medications: Patient's Medications New Prescriptions No medications on file Previous Medications ACETAMINOPHEN (TYLENOL) 500 MG TABLET Take 500 mg by mouth every 6 hours as needed. CHOLECALCIFEROL (VITAMIN D3) 25 MCG (1000 UT) TABLET Take 1,000 Units by mouth in the morning. DIGESTIVE ENZYMES (BIO PREBIOTIC SUPPLEMENT PO) Take by mouth daily. LUTEIN PO Take 1 tablet by mouth in the morning. MAGNESIUM PO Take by mouth daily. MECLIZINE (ANTIVERT) 12.5 MG TABLET Take 12.5 mg by mouth 3 times daily as needed. OMEGA-3 ACID ETHYL ESTERS (LOVAZA) 1 G CAPSULE Take 1 g by mouth 2 times daily. ONDANSETRON (ZOFRAN) 8 MG TABLET Take 8 mg by mouth every 12 hours as needed. PROBIOTIC PRODUCT (PROBIOTIC DAILY) CAPSULE Take 1 capsule by mouth daily. ZINC 50 MG TABLET Take 50 mg by mouth daily. Modified Medications No medications on file Discontinued Medications No medications on file Hold of further workup for now If pain returns go to [facility] SURGICAL WEIGHT LOSS MANAGEMENT PROGRAM ROOMING NOTE - OTHER POST-OP Patient: Александр Amrbiz Date of : 1970 Service Date: 03/29/2023 Reason patient is here today: Vomiting & abd pain/ ER F/U. This patient is accompanied by spouse for the evaluation today. Date of Weight Loss Surgery: 07/02/2011 Procedure Performed: Laparoscopic Loreta-en-Y Gastric Bypass Post-Surgical Weight Loss Date: 03/29/23 Height: 5' 6.5 (168.9 cm) ([facility] - ht recheck) Weight: 210 lb 6.4 oz (95.4 kg) ([facility]) BMI: 33.45 Weight Change: -46.2 lbs Total Weight Change: -147.6 lbs % EBWL: 66% Comments: vomiting & abdominal pain /ER F/U Weight change from last visit Weight Change Since Last Visit: 95.44 kg Pain: Patient rates pain on scale 0-10 as: 0 Falls Risk Assessment Patient does not take medications which affect BP or mental status Patient does not have newly prescribed or changed dosage of medications within past 30 days which affect BP or mental status Patient has not fallen in the past 2 months Patient does not demonstrate unsteady gait Patient uses the following ambulatory assistive devices: none Patient states the presence of the following traits which increases risk of fall: N/A Patient is low risk for falls. If high or moderate risk, patient instructed not to ambulate independently in the Center, and cord for call light placed within reach of patient. Patient is not on home O2 Completed by: Maya Marcelino MA documented in this encounter [facility] 03-17-2023 Telephone encounter Note Patient has been added to the schedule, and notified. 03/29 10:30 with MP [facility] 03-17-2023 Miscellaneous Notes Patient has been added to the schedule, and notified. 03/29 10:30 with MP Noted, thank you. Does not appear surgery was done at [facility]. With history of internal hernia, can we see CT results? Shannon, nelli to schedule OV? LRYGB 07/02/2011 MP closure of Mcarthur's defect, reduction of internal hernia and Lysis of adhesions 07/21/20 TB Last OV-08/02/20 with TB, next none Pt admitted on 03/10/23 with SBO Will route to SEED AND FERTILIZER SPECIALIST and RNCM as FYI Believe that pt will need to follow up with [facility] surgeon for initial post op follow up and then can follow up with this office but will route to [facility] for review and direction on scheduling. Post op patient of Dr Rojas in 2011, had bariatric surgery-loreta. Patient states she has had hernia operations afterwards with Dr Contreras and Dr Dennison. Patient states she had a small bowel obstruction last week, and was admitted here at [facility]. Patient states she was released on a liquid diet over the holidays. Patient states she has only had liquid diet with soups, cottage cheese and wheat toast with peanut butter, with no problems. Patient is asking to follow-up with us. Looks like patient was last seen in July [address] Dennison. documented in this encounter [facility] 03-17-2023 Miscellaneous Notes Patient has been added to the schedule, and notified. 03/29 10:30 with MP Noted, thank you. Does not appear surgery was done at [facility]. With history of internal hernia, can we see CT results? Shannon, nelli to schedule OV? LRYGB 07/02/2011 MP closure of Mcarthur's defect, reduction of internal hernia and Lysis of adhesions 07/21/20 TB Last OV-08/02/20 with TB, next none Pt admitted on 03/10/23 with SBO Will route to SEED AND FERTILIZER SPECIALIST and RNCM as FYI Believe that pt will need to follow up with [facility] surgeon for initial post op follow up and then can follow up with this office but will route to [facility] for review and direction on scheduling. Post op patient of Dr Rojas in 2011, had bariatric surgery-loreta. Patient states she has had hernia operations afterwards with Dr Contreras and Dr Dennison. Patient states she had a small bowel obstruction last week, and was admitted here at [facility]. Patient states she was released on a liquid diet over the holidays. Patient states she has only had liquid diet with soups, cottage cheese and wheat toast with peanut butter, with no problems. Patient is asking to follow-up with us. Looks like patient was last seen in July [address] Dennison. documented in this encounter [facility] 03-16-2023 Telephone encounter Note Noted, thank you. Does not appear surgery was done at [facility]. With history of internal hernia, can we see CT results? nelli Ortega to schedule OV? [facility] 03-15-2023 Telephone encounter Note LRYGB 07/02/2011 MP closure of Mcarthur's defect, reduction of internal hernia and Lysis of adhesions 07/21/20 TB Last OV-08/02/20 with TB, next none Pt admitted on 03/10/23 with SBO Will route to SEED AND FERTILIZER SPECIALIST and RNCM as FYI Believe that pt will need to follow up with [facility] surgeon for initial post op follow up and then can follow up with this office but will route to [facility] for review and direction on scheduling. [facility] 03-15-2023 Telephone encounter Note Post op patient of Dr Rojas in 2011, had bariatric surgery-loreta. Patient states she has had hernia operations afterwards with Dr Contreras and Dr Dennison. Patient states she had a small bowel obstruction last week, and was admitted here at [facility]. Patient states she was released on a liquid diet over the holidays. Patient states she has only had liquid diet with soups, cottage cheese and wheat toast with peanut butter, with no problems. Patient is asking to follow-up with us. Looks like patient was last seen in July [address] Dennison. [facility] 03-11-2023 Note HNO ID: [id number] Author: Orlando Vasquez MD Service: General Surgery Author Type: Physician Type: Progress Notes Filed: 03/11/2023 8:46 AM Note Text: General surgery SERVICE CONSULT PROGRESS NOTE SERVICE DATE: 03/11/2023 SERVICE TIME: 8:45 AM Subjective INTERVAL HPI: Patient's pain has improved since admission. No flatus or bowel movements as of yet. Current Facility-Administered Medications Medication Dose Route Frequency iv contrast (radiology procedure) INTRAVENOUS DIRECTED PRN NaCl 0.9% iv flush bag 20 mL INTRAVENOUS PRN lactated ringers iv infusion 100 mL/hr INTRAVENOUS CONTINUOUS morphine 1-2 mg injection 1-2 mg INTRAVENOUS q 4 H PRN Objective PHYSICAL EXAM: Physical Exam Performed: Abdomen is soft tender in the epigastric area but no rebound guarding or peritoneal signs are identified. BP 121/62 Pulse 60 Temp (Src) 98.6 (Oral) Resp 18 Ht 5' 7 [Simultaneous filing. User may not have seen previous data.[ (1.70m) Wt 210 lb 1.6 oz (95.3kg) SpO2 95% BMI 32.90 kg/(m2). O2 Therapy: Room Air DATA: Diagnostic tests reviewed for today's visit: Most recent labs and imaging results. Impression/Recommendations Principal Problem: SBO (small bowel obstruction) (HCC) (POA: Unknown) Assessment AND Plan: We will start some clear liquids today and see how she tolerates this. Resolved Problems: * No resolved hospital problems. * SIGNATURE: Orlando Vasquez III, MD PATIENT NAME: Александр Ambriz DATE: March 11, 2023 TIME: 8:45 AM PAGER: [facility] 07-22-2020 Note Physician Discharge Summary Dictating Resident: Gena Pitt Patient ID: Patient: Александр Ambriz Date of : 1970 Age: 49 y.o. Sex: female Acct: [id number] Admit Date: 07/21/2020 Discharge date: 07/22/2020 Service, Admitting Physician: General Surgery, Dr. Dennison Admission Diagnoses: Internal hernia Body mass index is 40.72 kg/m?. BMI Classification: Morbidly Obese (>40.0) Hospital Course: Александр Ambriz is a 49-year-old female with a history of LRYGB in 2011 who presented with an internal hernia. On 07/21/20, she underwent diagnostic laparoscopy with reduction of internal hernia, lysis of adhesions, and closure of Reyes's defect by Dr. Dennison. Postoperatively, her pain was well controlled. She tolerated gradual diet advancement without nausea or vomiting. She voided without difficulty and had return of bowel function. Due to clinical improvement, she was deemed stable for discharge home on 07/22/20. Diagnostic Studies: Reviewed Treatments: Diagnostic laparoscopy with reduction of internal hernia, lysis of adhesions, and closure of Reyes's defect 07/21/20 Consults: None Discharge Condition: Stable Primary Discharge Diagnosis: Internal hernia Secondary Diagnoses: 1. Hx GERD 2. Hx HPL 3. Morbid obesity Disposition: Stable for discharge home Patient Instructions: Activity: As tolerated Diet: Regular diet Follow-up: Dr. Dennison in 2 weeks Tests needed as outpatient: None Medications: 1. Percocet 2. Zofran Signed: Gena Pitt MD [facility] 07-21-2020 Note OPERATIVE NOTE DATE OF PROCEDURE: 07/21/2020 SURGEON: SIM DENNISON SKATING CARHOP: Lelo Santamaria DO PREOPERATIVE DIAGNOSIS: Abdominal pain, concern for internal hernia POSTOPERATIVE DIAGNOSIS: Internal hernia, adhesions OPERATION: 1. Diagnostic laparoscopy with closure of Mcarthur's defect and reduction of internal hernia, lysis of adhesions ANESTHESIA: General anesthesia ESTIMATED BLOOD LOSS: 25 cc FLUID REPLACEMENT: see anesthesia notes COMPLICATIONS: None SPECIMENS: None PREOPERATIVE MEDICATIONS: ancef WOUND CLASS: clean HISTORY: The patient is a 49 y.o. year old female with history of above preop diagnosis. I explained the risk, benefits, expected outcome, and alternatives to the procedure. Patient understands and is in agreement to proceed with operation. PROCEDURE: The patient was taken to the operating room and placed supine on the operating table. After adequate anesthesia was induced by the anesthesia team the arms were tucked at the side taking care to protect bony prominences on the operating table. The patient was prepped and draped in the usual sterile fashion and the chlorhexadine was allowed to dry for three minutes. A time out was performed and SCIP criteria was adhered to. We began by making an incision in the left upper quadrant and we entered the abdomen with a 5 mm optiview trocar and insufflated to a pressure of 15 mmHg without difficulty. We then placed three more 5 mm trocars in the right mid abdomen under direct visualization. 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 We identified the cecum however we were unable to run it proximally due to tension. We identified the loreta limb and ran it distally. There were adhesions of the omentum tot he loreta limb and these were taken down with enseal. We then were able to reduce the loreta limb and jejunojejunostomy through Reyes's hernia defect. We then examined all three limbs of intestine and confirmed they were in the proper orientation status post gastric bypass and there were no signs of bowel injury. There was a serosal injury, which is an expected finding in this type of difficult advanced laparoscopic case, and a 3-0 vicryl suture was placed in the bowel. We then closed the defect with a running 2-0 Ethibond suture. We then examined the defect and it was seen to be completely obliterated, there was no space between the transverse colon mesentery and the small bowel mesentery of the loreta limb. The defect between the jejunum mesenteries was closed from previous surgery. We desufflated the abdomen and closed the skin incisions with interrupted 4-0 Moncryl subcuticular sutures. Steri strips, and sterile dressings were applied. The sponge, instrument, and needle counts were correct. The patient was extubated and taken to recovery in stable condition. The patient tolerated the procedure well and there were no complications. Start Time: 0830 Stop Time: 5 [employer] Manager: [x] Resident [] Fellow [] PA/SEED AND FERTILIZER SPECIALIST/CONDUCTOR/ENGINEER [] Attending - Weight Loss Surgeon ASA Class: [] 1 [] 2 [x] 3 []4 [] 5 Surgical Approach: [x] Conventional laparoscopic [] Robotic-assisted [] Open Was the procedure converted to another approach? [] Yes [x] No If YES, then what was the final operative approach? [] Open [] Laparoscopic Was the case aborted? [] Yes [x] No Was a drain placed at the time of the initial operation? [] Yes [x] No Was a swallow study performed the day of or the day after the procedure? [] Yes [x] No Was the anastomotic/staple line checked with a provocative test to assess for leak? 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 Other nutritional deficiency Hyperlipidemia, unspecified hyperlipidemia type Class 1 obesity due to excess calories with serious comorbidity and body mass index (BMI) of 33.0 to 33.9 in adult [facility] Muscle cramps- Primary Cramp of limb documented in this encounter [facility] Summary Purpose Family History No Family History Records FoundNo Family History Records FoundNo Family History Records FoundNo Family History Records FoundNo Family History Records Found Advance Directives No Advanced Directives Records FoundDocuments on File Type Date Recorded Patient Licensed Pesticide Applicator Expl anation ACP-Advance Directive ACP-Power of Car Washer Latest Code Status on File Code Status Date Activated Date Inactivated Comments Full Code 07/21/2020 12:36 PM Latest Code Status on File Code Status Date Activated Date Inactivated Comments Full Code 07/21/2020 12:36 PM 07/22/2020 5:10 PM Discharge Instructions * Instructions* Kristine Santamaria DO - 07/21/2020 Images from the original note were not included. DISCHARGE INSTRUCTIONS Thank you very much for allowing me to participate in your care, it is truly a privilege. Below please see discharge orders that will help you during your recovery. Please do not hesitate to call theoffice during the day at [phone] for any questions. After hours, the same number will allow you to reach the on-call surgeon. Please remove the Steri-Strips 5 days after surgery. This includes any clear bandages and gauze placed in the navel, if applicable. If you have been provided with an abdominal binder, this is for your comfort. Please take this off in order to shower and use it as needed for your comfort. There is no designated time frame with which you should wear the binder. Again, it is only for your comfort and symptom relief. Do not lift anything that is 15 pounds or greater for 4 weeks from the date of your surgery. This is to prevent herniation at your incision sites. Please shower the day after surgery. Soap and water is adequate. Keep the incisions clean and dry. No lotions or ointments until you are seen in the office. Do not swim in a pool, go in a hot tub, orsoak in a bathtub for the first week after your surgery. Surgery can hurt! Please make every effort to take the pain medicine as instructed to help reduce your discomfort. If you are a full sized adult and do not have a contraindication to taking tylenol or ibuprofen you can take a combination of these medicines as follows: 1000 mg Tylenol every 6 hours and 800 mg ibuprofen every 6 hours. I recommend that you alternate these medications so that you aretaking either tylenol or ibuprofen every 3 hours for the first 3-5 days after your surgery even in the event that you do not have discomfort. Surgery is an inflammatory process and these medications will help decrease inflammation and pain. Do not wait until you have pain to take these medications,it is hard to catch up once the pain begins. If you are prescribed [place] (Vicodin) or Percoet, please note that these medications have tylenol in them. If you take 1-2 percocet tablets simply do not take the 1000 mg tylenol. DO NOT exceed 4000 mg tylenol in 24 hours or 3200 mg ibuprofen in 24 hours. I recommend keeping a log of the medications that you have taken to ensure you are not exceeding the recommended dosage. If you feel that the medicine is not working or if you have questions please call the office. An EXAMPLE schedule of how to take these medications is below. It is not necessary to wake yourself from sleep to take pain medication. 6 am 1-2 percocet tablets if needed OR 1000 mg tylenol 9 am 800 mg ibuprofen 12 pm 1-2 percocet tablets if needed OR 1000 mg tylenol 3 pm 800 mg ibuprofen 6 pm 1-2 percocet tablets if needed OR 1000 mg tylenol 9 pm 800 mg ibuprofen 12 am 1-2 percocet tablets if needed OR 1000 mg tylenol 3 am 800 mg ibuprofen 6 am 1-2 percocet tablets if needed OR 1000 mg tylenol You may have had a TAP block. This is a numbing medication that the anesthesia team may have given you preoperatively. This block is great at reducing post operative pain, however, it may only last 24-48 hours. Again, I recommend that you take the tylenol/ibuprofen regimen as above in order to easeinto the transition of the TAP block wearing off. Should you have nausea after surgery you may have been prescribed nausea medication. Try taking themedicine and if you feel that the medicine is not working, please call the office. I recommend taking colace for the first week after surgery. This medication can be purchased over the counter or it may be prescribed for you. Colace is a stool softener and should not cause diarrhea. Take 100 mg every 12 hours for the first week to prevent constipation. You may also take a cap full of Miralax daily if you have a history of constipation or if you have not had a bowel movement in the first 24 hours after surgery. For any emergencies, please dial 911. Thank you again for allowing me to participate in your care, and get well soon! Sim Dennison MD documented in this encounter History of Present Illness * Aaron Lux RN - 07/21/2020 12:30 PM EDT Pt dry heaving, phenergan administered. visiting at bedside. Report given to GIOVANY Medrano, transported to . * Anisha Kyle RN - 07/21/2020 7:57 AM EDT Patient arrived to [facility]. Dr. Lomax to bedside. Patient jewelry removed and labeled (two yellow rings with clear gem, one green bracelet, one savage necklace). Call light in reach. documented in this encounter Assessments Diagnosis Internal hernia- Primary Hernia of other specified sites of abdominal cavity without mention of obstruction or gangrene Mesenteric hernia Hernia of other specified sites of abdominal cavity without mention of obstruction or gangrene Generalized abdominal pain Abdominal pain, generalized Additional Source Comments INFORMATION SOURCE (unrecogn ized section and content) DATE CREATED AUTHOR 07/22/2020 [facility] DATE CREATED AUTHOR AUTHOR'S ORGANIZ ATION 07/18/2021 [facility] DATE CREATED AUTHOR AUTHOR'S ORGANIZ ATION 03/12/2023 [facility] DATE CREATED AUTHOR AUTHOR'S ORGANIZ ATION 04/03/2023 [facility] DATE CREATED AUTHOR AUTHOR'S ORGANIZ ATION 11/22/2023 [facility] Reason for Visit (unrecogniz ed section and content) Reason Comments Abdominal Pain Back Pain Reason Onset Date Comments Vomiting 03/15/2023 Vomiting, and ab d pain Reason Comments Bariatrics Post Op Follow-up Vomiting & abd pain/ ER F/U Reason Comments Pain Ankle pain started t his morning, having cramps in leg, feet and thighs,. When she wakes up in middle of night if she gets up and steps down it goes away. Has been vitamin deficient before. Is taking suplaments. Ordered Prescriptions (unrec ognized section and content) Prescription Sig Dispensed Refills Start Date End Da te ondansetron (ZOFRAN) 4 MG tablet Take 1 tablet by mouth 3 times daily as needed for Nausea or Vomiting 15 tablet 0 07/21/2020 oxyCODONE-acetaminophen (PERCOCET) 5-325 MG per tabletIndications:Fishing Lure Assembler al hernia Take 1 tablet by mouth every 6 hours as needed for Pain for up to 5 days. Intended supply: 5 days. Take lowest dose possible to manage pain 20 tablet 0 07/21/2020 07/26/2020 Care Teams (unrecognized sec tion and content) Interior Painter Relationship Specialty Start Date End Date Isaac Mina [address] [place] [address] PCP - General 07/21/20 Interior Painter Relationship Specialty Start Date End Date Isaac Mina [address] [place] [address] PCP - General 07/21/20 Interior Painter Relationship Specialty Start Date End Date Isaac Mina [address] [place] [address] PCP - General 07/21/20 Interior Painter Relationship Specialty Start Date End Date Isaac Mina APRN.NARCOTICS INVESTIGATOR [address] [facility] [address] [place] [address] PCP - General Family Medicine 07/20/20 Source Comments (unrecognize d section and content) In the event this informatio n is protected by the Federal Confidentiality of Alcohol and Drug Abuse Patient Records regulations: The Federal rules restrict any use of the information to criminally investigate or prosecute any alcohol or drug abuse patient.[facility] FOR RECORDS PERTAINING TO PATIENTS WHO ARE OR HAVE BEEN ENROLLED IN A CHEMICAL DEPENDENCY/SUBSTANCEABUSE PROGRAM, SOME INFORMATION MAY BE OMITTED. This clinical summary was aggregated from multiple sources. Caution should be exercised in using it in the provision of clinical care. This summary normalizes information from multiple sources, and as a consequence, information in this document may materially change the coding, format and clinical context of patient data. In addition, data may be omitted in some cases. CLINICAL DECISIONS SHOULD BE BASED ON THE PRIMARY CLINICAL RECORDS. [facility]. provides no warranty or guarantee of the accuracy or completeness of information in this document.
[2024-02-13 08:14] LABS: HOMOCYSTEINE 7.8 umol/L (0.0-14.5)
[2024-02-17 00:07] LABS: Vitamin B1, Thiamine 130.4 nmol/L (66.5-200.0)
== END | disposition home or self-care (01) ==
LOC: RAD 15:24
PROVIDERS: PCP Nurse Practitioner; Referring Provider Physician Assistant; Visit Provider Physician Assistant
DX: R20.0 Anesthesia of skin (principal); R20.2 Paresthesia of skin; I73.9 Peripheral vascular disease, unspecified; R25.2 Cramp and spasm; Z15.89 Genetic susceptibility to other disease; D50.9 Iron deficiency anemia, unspecified; I25.10 Atherosclerotic heart disease of native coronary artery without angina pectoris; M47.816 Spondylosis without myelopathy or radiculopathy, lumbar region; M51.369 Other intervertebral disc degeneration, lumbar region without mention of lumbar back pain or lower extremity pain; Z96.642 Presence of left artificial hip joint
CPT/HCPCS: 36415; 72100; 82607; 82746; 83090; 84425; 85025